=== PATIENT | male | born 1940 | race Caucasian/White ===

== ENCOUNTER 2019-10-02 14:42 | Inpatient (IN) | payer OTHER ==
[2019-10-02] MEDS ORDERED: LACTATED RINGERS SOLUTION 1000 ML INFUS.BAG IV ONE ×2 (15:05→15:43)
--- NOTE | 2019-10-02 15:48 | PDOC ---
Attending Attestation - Resident Resident Name: Toi Cody - ED Attending Attestation I have performed the following: I have examined & evaluated the patient, The case was reviewed & discussed with the resident, I agree w/resident's findings & plan - HPI HPI: 10/02/19 15:44 79-year-old male with history of diabetes, hypothyroidism, hypertension, hyperlipidemia Presenting with near syncopal episode. He was using the bathroom making a bowel movement when he stood up and felt very weak and slumped himself to the ground. No LOC or head trauma. No chest pain or shortness of breath. No abdominal pain, nausea vomiting or diarrhea. No focal weakness or paresthesias Patient has had a similar episode about 1-1/2 months ago while in [place] where he was admitted for dehydration and near syncope as well with a very similar presentation. He has also been COVID tested several times and negative most recently about 1.5 weeks ago. via EMS received 1L NS 10/02/19 16:36 - Physicial Exam PE: 10/02/19 15:44 Agree with the resident's HPI and PE as documented in the electronic medical record. malaised appearing, quiet, awake and alert, EOMI, PERRL, nl conjunctiva, anicteric; neck supple. lungs diminished bilaterally, tachycardic, abdomen soft nontender. no rebound, guarding. YOON x4, no focal neuro deficits. speech clear. No peripheral edema. normal color for ethnicity, WWP. no rash. no calf tenderness. - Medical Decision Making 10/02/19 15:46 Vital Signs Temp Pulse Resp BP Pulse Ox 92 H 26 H 51/40 L 88 L 10/02/19 14:45 10/02/19 14:45 10/02/19 14:45 10/02/19 14:45 Vital signs reviewed, afebrile. He is borderline tachycardic. Tachypneic and hypoxic 88% on room air, placed on supplemental oxygen He is hypotensive consistently. We will try manual blood pressure cuff. DDx syncope: considered interval abnormalities including short QTC or long QT syndrome, WPW, conduction abnormality, Brugada, ACS, myocardial infarction/ischemia, arrhythmia, valvular heart disease such as , CHF/cardiomyopathy, PE, electrolyte disturbances, metabolic derangement, clinically significant bleeding, dehydration, AAA. seizure, [employer] lesion, CVA, ICH, SAH. vasovagal episode. Neuro exam is nonfocal, not consistent with CVA or primary neurologic abnormality. will still need head ct could be infection or cardiovascular. covid 19 risk, last travel to [place] about 1 month ago. lives here had near syncope episode today similar to prior bedside pocus difficult, normal EF grossly, no effusion, flat IVC/collapsible fluid resuscitate with 2L LR and reassess mentating for now, goal map >65 will recheck at bedside declines central line for the time being 10/02/19 16:31 labs with lactic acidosis, sig leukocytosis 18.8K blood cultures pending no fever here pending dimer, if pos, CTA indicated covid 19 swab plan to admit observation for dehydration, lactic acidosis, near syncope workup, telemetry, echo, medical management 10/05/19 13:37 Heart Score/ECG Review #1 ECG reviewed & interpreted by me at: 14:55 General ECG Interpretation: Sinus Rhythm, Normal Intervals 10/02/19 15:47 EKG sinus tachycardia at 117 bpm, no interval abnormalities, narrow QRS, ST and T wave segments and morphology normal. Nonspecific T wave abnormalities Discharge - Discharge Information Problems reviewed: Yes Clinical Impression/Diagnosis: Near syncope, Hypovolemia, Lactic acidosis Condition: Guarded - Admission Yes - Follow up/Referral - Patient Discharge Instructions - Post Discharge Activity Vital Signs - Vital Signs Vital signs refused: No Pulse Rate: 87 Blood Pressure: 71/49 BP Location: Right Arm Blood Pressure position: Supine
--- NOTE | 2019-10-02 15:49 | PDOC ---
History of Present Illness - General Chief Complaint: Syncope/Near Syncope Stated Complaint: LOW BLOOD PRESSURE Time Seen by Provider: 10/02/19 14:52 History Source: Patient, Spouse Exam Limitations: No Limitations - History of Present Illness Initial Comments: 10/02/19 15:37 Jey Negron is a 79M with PMH HTN, HLD, NIDDM, hypothyroidism, presents with hypotension and pre-syncopal event. Patient here with at bedside to provide ancillary history. Patient having a bowel movement, felt weak, and was able to guide himself as he slumped to the ground. Patient is awake and denies any LOC or head trauma. Patient denies any prodromal SOB, chest pain, palpitations, fever, chills, N/V, urinary sx, vision changes, HARRIS, or abd pain. EMS reports BP 50/40 on arrival, 1L IV NS given, BP has been low entire time but patient was awake and speaking. Clothes covered in loose stool on presentation. Currently says he feels weak but okay, denies any other symptoms. Denies num bness/tingling or paraesthesias. 2 months ago had similar presentation while in [place], given 2L IV fluids and recovered, monitored overnight and discharged home. Unclear etiology at that time. COVID-19 tested about a week ago and was negative denies any symptoms of covid-19 at this time. Denies history of clotting disorders or clots. Allergy to seafood. Denies alcohol/drugs/tobacco. No PSH. Past History - Medical History Allergies/Adverse Reactions: Allergies Allergy/AdvReac Type Severity Reaction Status Date / Time No Known Allergies Allergy Verified 10/02/19 15:04 Home Medications: Ambulatory Orders Alfuzosin HCl [Alfuzosin HCl ER] 10 mg PO DAILY 10/02/19 Aspirin 81 mg PO DAILY 10/02/19 Atorvastatin Ca [Lipitor] 20 mg PO HS 10/02/19 Canagliflozin [Invokana] 100 mg PO DAILY 10/02/19 Efinaconazole [Jublia] 0 ml TP ASDIR 10/02/19 Gabapentin [Neurontin -] 100 mg PO HS 10/02/19 Insulin Glargine,Hum.rec.anlog [Lantus Solostar] 40 unit SQ HS 10/02/19 Levothyroxine [Synthroid -] 50 mcg PO DAILY 10/02/19 Lisinopril [Prinivil] 5 mg PO DAILY 10/02/19 Sitagliptin Phosphate [Januvia] 100 mg PO DAILY 10/02/19 metFORMIN HCL [Metformin HCl] 1,000 mg PO BID 10/02/19 COPD: No Diabetes: Yes - Psycho-Social/Smoking History Smoking History: Never smoked - Substance Abuse Hx (Audit-C & DAST Scrn) How often the patient has a drink containing alcohol: Never Score: In Men: 4 or > Positive; In Women: 3 or > Positive: 0 Screen Result (Pos requires Nsg. Audit-10AR): Negative In the last yr the pt used illegal drug/Rx for NonMed reason: No Score: Yes response is considered Positive: 0 Screen Result (Positive result requires Nsg. DAST-10): Negative Review of Systems - Review of Systems Able to Perform ROS?: Yes Constitutional: No: Chills, Diaphoresis, Fever HEENTM: No: Symptoms Reported Respiratory: No: Cough, Shortness of Breath, SOB with Exertion, SOB at Rest Cardiac (ROS): Yes: Lightheadedness. No: Chest Pain, Irregular Heart Rate, Palpitations ABD/GI: No: Constipated, Diarrhea, Nausea, Poor Appetite, Poor Fluid Intake, Vomiting : No: Symptoms Reported Musculoskeletal: No: Symptoms Reported Integumentary: No: Symptoms Reported Neurological: Yes: Weakness. No: Headache, Numbness Endocrine: No: Symptoms Reported Hematologic/Lymphatic: No: Symptoms Reported All Other Systems: Reviewed and Negative *Physical Exam - Vital Signs Last Vital Signs Temp Pulse Resp BP Pulse Ox 98.6 F 88 17 130/77 100 10/02/19 20:33 10/02/19 20:33 10/02/19 20:33 10/02/19 20:33 10/02/19 20:33 - Physical Exam General Appearance: Yes: Nourished, Appropriately Dressed, Other (lying flat in bed and drowsy, but verbal and responsive). No: Apparent Distress HEENT: positive: EOMI, RANJITH, Normal Voice, Symmetrical, Hearing Grossly Normal. negative: Scleral Icterus (R), Scleral Icterus (L), Muffled/Hoarse voice, Pharyngeal Erythema, Tonsillar Exudate, Tonsillar Erythema Neck: positive: Trachea midline, Normal Thyroid, Supple. negative: Tender, Rigid, Lymphadenopathy (R), Lymphadenopathy (L), Tender lateral, Tender midline Respiratory/Chest: positive: Lungs Clear, Normal Breath Sounds. negative: Chest Tender, Respiratory Distress, Accessory Muscle Use, Crackles, Rales, Rhonchi, Stridor, Wheezing Cardiovascular: positive: Regular Rhythm, Regular Rate. negative: Murmur Gastrointestinal/Abdominal: positive: Normal Bowel Sounds, Flat, Soft. negative: Tender, Organomegaly, Pulsatile Mass, Guarding, Rebound Musculoskeletal: positive: Normal Inspection. negative: CVA Tenderness, Decreased Range of Motion, Vertebral Tenderness Extremity: positive: Normal Capillary Refill, Normal Inspection, Normal Range of Motion, Pelvis Stable. negative: Tender, Delayed Capillary Refill, Pedal Edema, Swelling, Calf Tenderness Integumentary: positive: Normal Color, Dry, Warm Neurologic: positive: herb doctor II-XII NML intact, Fully Oriented, Alert, Normal Mood/Affect, Normal Response, Motor Strength 5/5. negative: Facial Droop, Numbness, Sensory Deficit ED Treatment Course - LABORATORY CBC & Chemistry Diagram: 10/02/19 15:20 10/02/19 15:20 - ADDITIONAL ORDERS Additional order review: Laboratory Results 10/02/19 10/02/19 10/02/19 16:00 15:20 15:20 PT with INR INR PTT (Actin FS) D-Dimer VBG pH 7.273 L POC VBG pCO2 41.4 POC VBG pO2 38.3 VBG HCO3 18.7 L VBG O2 Sat (Denise) 65.5 L VBG Base Excess -7.7 L Sodium Potassium Chloride Carbon Dioxide Anion Gap BUN Creatinine Est GFR (CKD-EPI)AfAm Est GFR (CKD-EPI)NonAf Random Glucose Lactic Acid 8.2 H* Calcium Magnesium Ferritin Total Bilirubin AST ALT Alkaline Phosphatase LD Total Creatine Kinase Troponin I C-Reactive Protein Total Protein Albumin Blood Type Cancelled Antibody Screen Cancelled 10/02/19 10/02/19 10/02/19 15:20 15:20 15:20 PT with INR 11.80 INR 1.00 PTT (Actin FS) 27.8 D-Dimer 40482 H VBG pH POC VBG pCO2 POC VBG pO2 VBG HCO3 VBG O2 Sat (Denise) VBG Base Excess Sodium 141 Potassium 4.4 Chloride 108 H Carbon Dioxide 18 L Anion Gap 15 BUN 19.4 H Creatinine 1.4 H Est GFR (CKD-EPI)AfAm 55.38 Est GFR (CKD-EPI)NonAf 47.78 Random Glucose 228 H Lactic Acid Calcium 9.7 Magnesium 2.2 Ferritin 20.8 Total Bilirubin 0.5 AST 44 H ALT 31 Alkaline Phosphatase 91 LD Total 391 H Creatine Kinase 115 Troponin I < 0.02 C-Reactive Protein < 0.3 Total Protein 6.6 Albumin 2.8 L Blood Type Antibody Screen 10/02/19 15:20 RBC 5.52 MCV 91.0 MCHC 31.5 L RDW 15.1 MPV 9.7 Neutrophils % 79.7 Lymphocytes % 13.1 Monocytes % 5.4 Eosinophils % 1.1 Basophils % 0.7 - RADIOLOGY Radiology Studies Ordered: Category Date Time Status CHEST CTA [CT] Stat CT Scan 10/02/19 17:22 Taken - Medications Given in the ED: ED Medications Discontinued Medications Generic Name Dose Route Start Last Admin Trade Name Freq PRN Reason Stop Dose Admin Lactated Ringer's 1,000 ml 10/02/19 15:05 10/02/19 15:59 Lactated Ringers Solution IV 10/02/19 15:06 1,000 ml ONCE ONE Administration Lactated Ringer's 1,000 ml 10/02/19 15:43 10/02/19 16:02 Lactated Ringers Solution IV 10/02/19 15:44 1,000 ml ONCE ONE Administration Medical Decision Making - Medical Decision Making 10/02/19 18:22 Patient presents with pre-syncopal episode and hypotension in the setting of previous episode and history of HTN, HLD. Patient's BP on arrival 50/40 with SpO2 80%, improved to 100% immediately on 14L NRB. BP highly responsive to IVF, was getting infusion of 1L NS via 22G in left foot by EMS, 20G IV placed and BP cher slowly over the next 15 minutes. Bedside ECHO unremarkable for cardiac pathology, but IVC highly collapsible consistent with volume depletion, no evidence of of R heart strain. Ddx includes volume depletion, infection, cardiogenic shock, anemia, covid-19 infection. Evaluating for hypotension and pre-syncope with CMP/CBC/Mag/CP /ECG/CXR/UA/UC/Coags/lactate/VBG/BC. Getting D-dimer/CRP/LDH for likely COVID-19 given endemic region and hypoxia. CT head and chest for evaluation of neuro cause for syncope as well as covid-19 risk stratification. ECG sinus tachycardia with frequent PVCs, HR 117, QTc 507, no SILVINO/D or TWI. 10/02/19 20:54 After 1L NS and 1.5L LR, patient's BP 120/70, markedly improved. Was considering central line placement for hypotension, but IVF corrected/ May consider ICU consult given presentation, but patient hemodynamically stable at this time. Labs notable for: - WBC 18.8, afebrile - D-dimer 13058, unclear if covid-19 vs. PE - lactic acid 8.3, hypotensive for prolonged period and getting IVF - LDH 391 - Cr 1.4, mild ARIN Given hypotension and D-dimer elevation and hypoxia without obvious history of clots, patient ordered for CTA chest for evaluation of PE. CT head unremarkable for emergent pathology. CT chest and CXR show bibasilar consolidation vs. atelectasis without ground glass changes. Signed out to night team Dr. Caleb Stanford, plan for CTA, repeat lactic acid, and admit for tele/obs for hypotension and pre-syncope. Discharge - Discharge Information Problems reviewed: Yes Clinical Impression/Diagnosis: Near syncope, Hypovolemia, Lactic acidosis Condition: Fair - Admission Yes - Follow up/Referral Referrals: Asha Bhandari MD [Primary Care Provider] - - Patient Discharge Instructions - Post Discharge Activity
[2019-10-02 15:52] LABS: BASO % 0.7 % (0-2.0); EOS % 1.1 % (0-4.5); HEMATOCRIT 50.2 % (35.4-49); HEMOGLOBIN 15.8 GM/dL (11.7-16.9); LYMPH % 13.1 % (8-40); MCH 28.7 pg (25.7-33.7); MCHC 31.5 g/dl (32.0-35.9); MEAN PLT VOLUME 9.7 fl (7.5-11.1); MONO % 5.4 % (3.8-10.2); NEUT % 79.7 % (42.8-82.8); PLATELET COUNT 306 K/MM3 (134-434); RBC 5.52 M/mm3 (4.00-5.60); RDW 15.1 % (11.9-15.9); WHITE BLOOD COUNT 18.8 K/mm3 (4.0-10.0)
[2019-10-02 16:02] LABS: PROTHROMBIN TIME (PATIENT) 11.8 SEC (9.7-13.0)
[2019-10-02 16:04] LABS: ACTIVATED PTT 27.8 SECONDS (25.2-36.5)
[2019-10-02 16:37] LABS: ALBUMIN 2.8 g/dl (3.4-5.0); ALK PHOS 91 U/L (45-117); ANION GAP 15 MMOL/L (8-16); BILIRUBIN,TOTAL 0.5 mg/dL (0.2-1); BLOOD UREA NITROGEN 19.4 mg/dL (7-18); CALCIUM 9.7 mg/dL (8.5-10.1); CHLORIDE 108 mmol/L (98-107); CO2 18 mmol/L (21-32); CREATININE 1.4 mg/dL (0.55-1.3); GLUCOSE,RANDOM 228 mg/dL (74-106); MAGNESIUM 2.2 mg/dL (1.8-2.4); POTASSIUM 4.4 mmol/L (3.5-5.1); SGOT/AST 44 U/L (15-37); SGPT/ALT 31 U/L (13-61); SODIUM 141 mmol/L (136-145); TOT PROT 6.6 g/dl (6.4-8.2)
[2019-10-02 16:39] LABS: VENOUS BASE EXCESS -7.7 mmol/L (-2-2); VENOUS O2 SATURATION 65.5 % (70-80); VENOUS PCO2 41.4 mmHg (38-52); VENOUS PH 7.273 (7.310-7.410)
[2019-10-02 17:38] LABS: LDH 391 U/L (87-246)
--- NOTE | 2019-10-02 19:22 | PDOC ---
*Physical Exam - Vital Signs Last Vital Signs Temp Pulse Resp BP Pulse Ox 88 18 117/64 100 10/02/19 17:56 10/02/19 17:56 10/02/19 17:56 10/02/19 17:56 ED Treatment Course - LABORATORY CBC & Chemistry Diagram: 10/03/19 06:05 10/03/19 06:05 - ADDITIONAL ORDERS Additional order review: Laboratory Results 10/02/19 10/02/19 10/02/19 16:00 15:20 15:20 PT with INR INR PTT (Actin FS) D-Dimer VBG pH 7.273 L POC VBG pCO2 41.4 POC VBG pO2 38.3 VBG HCO3 18.7 L VBG O2 Sat (Denise) 65.5 L VBG Base Excess -7.7 L Sodium Potassium Chloride Carbon Dioxide Anion Gap BUN Creatinine Est GFR (CKD-EPI)AfAm Est GFR (CKD-EPI)NonAf Random Glucose Lactic Acid 8.2 H* Calcium Magnesium Ferritin Total Bilirubin AST ALT Alkaline Phosphatase LD Total Creatine Kinase Troponin I C-Reactive Protein Total Protein Albumin Blood Type Cancelled Antibody Screen Cancelled 10/02/19 10/02/19 10/02/19 15:20 15:20 15:20 PT with INR 11.80 INR 1.00 PTT (Actin FS) 27.8 D-Dimer 27475 H VBG pH POC VBG pCO2 POC VBG pO2 VBG HCO3 VBG O2 Sat (Denise) VBG Base Excess Sodium 141 Potassium 4.4 Chloride 108 H Carbon Dioxide 18 L Anion Gap 15 BUN 19.4 H Creatinine 1.4 H Est GFR (CKD-EPI)AfAm 55.38 Est GFR (CKD-EPI)NonAf 47.78 Random Glucose 228 H Lactic Acid Calcium 9.7 Magnesium 2.2 Ferritin 20.8 Total Bilirubin 0.5 AST 44 H ALT 31 Alkaline Phosphatase 91 LD Total 391 H Creatine Kinase 115 Troponin I < 0.02 C-Reactive Protein < 0.3 Total Protein 6.6 Albumin 2.8 L Blood Type Antibody Screen 10/02/19 15:20 RBC 5.52 MCV 91.0 MCHC 31.5 L RDW 15.1 MPV 9.7 Neutrophils % 79.7 Lymphocytes % 13.1 Monocytes % 5.4 Eosinophils % 1.1 Basophils % 0.7 - Medications Given in the ED: ED Medications Discontinued Medications Generic Name Dose Route Start Last Admin Trade Name Freq PRN Reason Stop Dose Admin Lactated Ringer's 1,000 ml 10/02/19 15:05 10/02/19 15:59 Lactated Ringers Solution IV 10/02/19 15:06 1,000 ml ONCE ONE Administration Lactated Ringer's 1,000 ml 10/02/19 15:43 10/02/19 16:02 Lactated Ringers Solution IV 10/02/19 15:44 1,000 ml ONCE ONE Administration Medical Decision Making - Medical Decision Making 10/02/19 19:20 79M presenting today with hypotension (50/40), diarrhea, and syncope while using the toilet Recently visited [place]. D-dimer elevated. Will obtain CTA to r/o PE and admit for hypotension. Pt is normotensive at this time after 2L of fluids. 10/02/19 22:02 CTA shows no gross signs of PE per verbal report with Dr. Molina. Unable to view official report as cadd technician support is away on vacation. 10/02/19 23:03 D/w Dr. Jaswant Hughes who accepts the patient for admission. 10/02/19 23:13 Rpt trop elevated Will obtain repeat EKG. Laboratory Last Values WBC 18.8 K/mm3 (4.0-10.0) H 10/02/19 15:20 RBC 5.52 M/mm3 (4.00-5.60) 10/02/19 15:20 Hgb 15.8 GM/dL (11.7-16.9) 10/02/19 15:20 Hct 50.2 % (35.4-49) H 10/02/19 15:20 MCV 91.0 fl (80-96) 10/02/19 15:20 MCH 28.7 pg (25.7-33.7) 10/02/19 15:20 MCHC 31.5 g/dl (32.0-35.9) L 10/02/19 15:20 RDW 15.1 % (11.9-15.9) 10/02/19 15:20 Plt Count 306 K/MM3 (134-434) 10/02/19 15:20 MPV 9.7 fl (7.5-11.1) 10/02/19 15:20 Absolute Neuts (auto) 15.0 K/mm3 (1.5-8.0) H 10/02/19 15:20 Neutrophils % 79.7 % (42.8-82.8) 10/02/19 15:20 Lymphocytes % 13.1 % (8-40) 10/02/19 15:20 Monocytes % 5.4 % (3.8-10.2) 10/02/19 15:20 Eosinophils % 1.1 % (0-4.5) 10/02/19 15:20 Basophils % 0.7 % (0-2.0) 10/02/19 15:20 Nucleated RBC % 0 % (0-0) 10/02/19 15:20 PT with INR 11.80 SEC (9.7-13.0) 10/02/19 15:20 INR 1.00 (0.83-1.09) 10/02/19 15:20 PTT (Actin FS) 27.8 SECONDS (25.2-36.5) 10/02/19 15:20 D-Dimer 27235 ng/ml (0-500) H 10/02/19 15:20 VBG pH 7.273 (7.310-7.410) L 10/02/19 16:00 POC VBG pCO2 41.4 mmHg (38-52) 10/02/19 16:00 POC VBG pO2 38.3 mmHg (28-48) 10/02/19 16:00 VBG HCO3 18.7 mmol/L (23-29) L 10/02/19 16:00 VBG O2 Sat (Denise) 65.5 % (70-80) L 10/02/19 16:00 VBG Base Excess -7.7 mmol/L (-2-2) L 10/02/19 16:00 Sodium 141 mmol/L (136-145) 10/02/19 15:20 Potassium 4.4 mmol/L (3.5-5.1) 10/02/19 15:20 Chloride 108 mmol/L (98-107) H 10/02/19 15:20 Carbon Dioxide 18 mmol/L (21-32) L 10/02/19 15:20 Anion Gap 15 MMOL/L (8-16) 10/02/19 15:20 BUN 19.4 mg/dL (7-18) H 10/02/19 15:20 Creatinine 1.4 mg/dL (0.55-1.3) H 10/02/19 15:20 Est GFR (CKD-EPI)AfAm 55.38 10/02/19 15:20 Est GFR (CKD-EPI)NonAf 47.78 10/02/19 15:20 Random Glucose 228 mg/dL (74-106) H 10/02/19 15:20 Lactic Acid 8.2 mmol/L (0.4-2.0) H* 10/02/19 15:20 Calcium 9.7 mg/dL (8.5-10.1) 10/02/19 15:20 Magnesium 2.2 mg/dL (1.8-2.4) 10/02/19 15:20 Ferritin 20.8 ng/ml (8-388) 10/02/19 15:20 Total Bilirubin 0.5 mg/dL (0.2-1) 10/02/19 15:20 AST 44 U/L (15-37) H 10/02/19 15:20 ALT 31 U/L (13-61) 10/02/19 15:20 Alkaline Phosphatase 91 U/L (45-117) 10/02/19 15:20 LD Total 391 U/L (87-246) H 10/02/19 15:20 Creatine Kinase 115 U/L (26-308) 10/02/19 15:20 Troponin I < 0.02 ng/ml (0.00-0.05) 10/02/19 15:20 C-Reactive Protein < 0.3 MG/DL (0.00-0.3) 10/02/19 15:20 Total Protein 6.6 g/dl (6.4-8.2) 10/02/19 15:20 Albumin 2.8 g/dl (3.4-5.0) L 10/02/19 15:20 Blood Type Cancelled 10/02/19 15:20 Antibody Screen Cancelled 10/02/19 15:20 10/02/19 23:34 EKG #2 shows 74 bpm, NSR, no axis deviation, SD 150, QTc 428, no ST elevation/depression. Discharge - Discharge Information Problems reviewed: Yes Clinical Impression/Diagnosis: Near syncope, Hypovolemia, Lactic acidosis Condition: Fair - Follow up/Referral - Patient Discharge Instructions - Post Discharge Activity
--- NOTE | 2019-10-02 23:18 | PN ---
Teaching Attending Note Name of Resident: Nerissa Nichols ATTENDING PHYSICIAN STATEMENT I saw and evaluated the patient. I reviewed the resident's note and discussed the case with the resident. I agree with the resident's findings and plan as documented. SUBJECTIVE: Patient is a 79 year old man with a PMH of HTN, HLD, Cataracts, Insulin-treated DM and Hypothyroidism who presents with hypotension and pre-syncopal event. Patient here with at bedside to provide ancillary history. Patient having a bowel movement, felt weak, and was able to guide himself as he slumped to the ground. Patient is awake and denies any LOC or head trauma. Patient denies any prodromal SOB, chest pain, palpitations, fever, chills, nausea, vomiting, dysuri a, urgency, frequency, vision changes, headache or abdominal pain.EMS reports BP 50/40 on arrival, 1L IV NS given, BP has been low entire time but patient was awake and speaking. Clothes covered in loose stool on presentation. Currently says he feels weak but okay, denies any other symptoms. Denies numbness, tingling or paraesthesias. Two months ago he had a similar presentation while in [place], given 2L IV fluids and recovered, monitored overnight and discharged home. Unclear etiology at that time. COVID-19 tested about a week ago and was negative. Denies history of clotting disorders or c lots, melena, hematochezia or hematuria. Denies alcohol, tobacco or illicit drug use. No sick contacts or recent travels. Has family history of DM in mother and father of pancreatic cancer. OBJECTIVE: Alert and orthostatic Vital Signs Period Temp Pulse Resp BP Sys/Alfred Pulse Ox Last 24 Hr 98.6 F 87-93 17-26 51-130/40-89 88-100 HEENT: No Jaundice, eye redness or discharge, PERRLA, EOMI. Normocephalic, atraumatic. External ears are normal and hearing is grossly intact. No nasal discharge. Neck: Supple, nontender. No palpable adenopathy or thyromegaly. No JVD Chest: Good effort. Clear to auscultation and percussion. Heart: Regular. No S3, rub or murmur Abdomen: Not distended, soft, nontender and no HSM. No rebound or guarding. Normal bowel sounds. Ext: Peripheral pulses intact. No leg edema. Skin: Warm and dry. No petechiae, rash or ecchymosis. Neuro: Alert. Oriented x3. CN 2-12 grossly intact. Sensation grossly intact in all four extremities and DTR are symmetric. Psych: Appropriate mood and affect. Good insight. Current Medications Generic Name Dose Route Start Last Admin Trade Name Adrianq PRN Reason Stop Dose Admin Enoxaparin Sodium 40 mg 10/03/19 10:00 Lovenox - SQ DAILY [facility] Home Medications Medication Instructions Recorded Alfuzosin HCl [Alfuzosin HCl ER] 10 mg PO DAILY 10/02/19 Aspirin 81 mg PO DAILY 10/02/19 Atorvastatin Ca [Lipitor] 20 mg PO HS 10/02/19 Canagliflozin [Invokana] 100 mg PO DAILY 10/02/19 Efinaconazole [Jublia] 0 ml TP ASDIR 10/02/19 Gabapentin [Neurontin -] 100 mg PO HS 10/02/19 Insulin Glargine,Hum.rec.anlog 40 unit SQ HS 10/02/19 [Lantus Solostar] Levothyroxine [Synthroid -] 50 mcg PO DAILY 10/02/19 Lisinopril [Prinivil] 5 mg PO DAILY 10/02/19 Sitagliptin Phosphate [Januvia] 100 mg PO DAILY 10/02/19 metFORMIN HCL [Metformin HCl] 1,000 mg PO BID 10/02/19 Abnormal Lab Results 10/02/19 10/02/19 10/02/19 15:20 15:20 15:20 WBC 18.8 H Hct 50.2 H MCHC 31.5 L Absolute Neuts (auto) 15.0 H D-Dimer 92899 H VBG pH VBG HCO3 VBG O2 Sat (Denise) VBG Base Excess Chloride 108 H Carbon Dioxide 18 L BUN 19.4 H Creatinine 1.4 H Random Glucose 228 H Lactic Acid AST 44 H LD Total 391 H Troponin I Albumin 2.8 L 10/02/19 10/02/19 10/02/19 15:20 16:00 21:00 WBC Hct MCHC Absolute Neuts (auto) D-Dimer VBG pH 7.273 L VBG HCO3 18.7 L VBG O2 Sat (Denise) 65.5 L VBG Base Excess -7.7 L Chloride Carbon Dioxide BUN Creatinine Random Glucose Lactic Acid 8.2 H* 2.5 H* AST LD Total Troponin I Albumin 10/02/19 22:20 WBC Hct MCHC Absolute Neuts (auto) D-Dimer VBG pH VBG HCO3 VBG O2 Sat (Denise) VBG Base Excess Chloride Carbon Dioxide BUN Creatinine Random Glucose Lactic Acid AST LD Total Troponin I 0.27 H Albumin Current Medications Generic Name Dose Route Start Last Admin Trade Name Freq PRN Reason Stop Dose Admin Apixaban 2.5 mg 10/03/19 10:00 Eliquis - PO BID RAMU Sodium Chloride 1,000 mls @ 83 mls/hr 10/03/19 00:15 10/03/19 00:38 Normal Saline - IV 83 mls/hr ASDIR RAMU Administration Insulin Aspart 1 vial 10/03/19 07:00 Novolog Vial Sliding Scale - SQ ACHS RAMU Protocol Piperacillin Sod/Tazobactam Sod 3.375 gm 10/03/19 00:45 10/03/19 00:57 Zosyn 3.375gm Ivpb (Pre-Docked) IVPB 10/03/19 18:01 3.375 gm Q8H-IV RAMU Administration Piperacillin Sod/Tazobactam Sod 3.375 gm 10/04/19 02:00 Zosyn 3.375gm Ivpb (Pre-Docked) IVPB Q8H-IV RAMU Vancomycin HCl 1,000 mg 10/04/19 00:45 Vancomycin (Pre-Docked) IVPB Q24H RAMU ASSESSMENT AND PLAN: 1. Presyncope/Septic shock due to pneumonia - BP improved with IV fluids in the ER. CXR shows cardiomegaly with bibasilar atelectasis (R>L). Noncontrast head CT scan shows moderate atrophy, left paraventricular chronic lacunar infarct but no evidence of acute intracranial pathology. Chest CT and CTA - No pulmonary embolism reported. Shows bibasilar atelectatsis/consolidation and JEAN pneumonia with acute/subacute fractures of left ribs 4,5 and 6. Was recently hospitalized in [place]. Sepsis workup done. Will treat with IV Zosyn and Vancomycin - dose adjusted for GFR. Will treat with Eliquis 2.5 mg PO bid until VTE can be definitely excluded. If he has naymore loose stool, will send for stool studies including C. diff toxin. EKG shows NSR at 78/minute and QTc [address]-T wave changes. Initial troponin is 0.27. Will admit to telemetry, trend troponin, rule ou ACS, trend lactic acid, continue IV NS, get ECHO, COVID-19 antibody test, TSH, do speech and swallow evaluation, neurochecks and implement fall/aspiration/seizure precautions. Consult Cardiology/PT/ID/Pulmonary. Viral testing for COVID-19 ordered and patient placed on airborne, droplet and contact isolation. Started on supplemental oxygen via nasal cannula. Will continue comprehensive care for all of patients comorbid conditions. 2. Hypoalbuminemia - Possibly due to combined effects of malnutrition and inflammation associated with comorbid conditions. Will ensure adequate dietary protein intake and also consult time piece repairer. Urinalysis pending. 3. Uncontrolled DM For now, we will hold the home diabetes drugs and implement sliding scale insulin regimen. Provide comprehensive diabetes care with patient teaching and counseling about the importance of adherence to prescribed diabetes regimen, euglycemia, eye care and foot care. 4. ARIN Likely partly due to dehydration/hypotension. Will get kidney sonogram, hydrate gently, monitor urine output and consult Nephrology. Avoid nephrotoxic agents such as NSAIDS, aminoglycosides, contrast dyes and certain Alternative medicine products. 5. Hypertension Will hold all outpatient antihypertensive drugs for now. 6. DVT prophylaxis - Eliquis 2.5 mg bid 7. Advance directives - Full code
[2019-10-02] MEDS ORDERED: AZITHROMYCIN IVPB 500 MG/250 ML BAG IVPB ONE (23:45)
[2019-10-02] MEDS ORDERED: CEFTRIAXONE 1 GM in DEXTROSE 5%-WATER - 50 ML IVPB SCH ×2 (23:45→23:47)
[2019-10-02] MEDS ORDERED: AZITHROMYCIN IVPB 500 MG in DEXTROSE 5%-WATER - 250 ML IVPB ONE (23:47)
[2019-10-02 23:49] LABS: ARTERIAL BLD GAS O2 SATURATION 99.7 mmHg (95-98); ARTERIAL BLOOD GAS BASE EXCESS -3.3 mmol/L (-2-2); ARTERIAL BLOOD GAS pH 7.368 (7.350-7.450)
[2019-10-02 23:50] LABS: ALLENS TEST POSITIVE
[2019-10-02 23:54] LABS: URINE APPEARANCE CLEAR; URINE BILIRUBIN NEGATIVE (NEGATIVE); URINE COLOR YELLOW; URINE GLUCOSE (UA) 3+ (NEGATIVE); URINE KETONE NEGATIVE (NEGATIVE); URINE LEUK ESTERASE NEGATIVE (NEGATIVE); URINE NITRITE NEGATIVE (NEGATIVE); URINE PROTEIN TRACE (NEGATIVE); URINE UROBILINOGEN 0.2 mg/dL (0.2-1.0)
[2019-10-03] MEDS ORDERED: LACTATED RINGERS SOLUTION 1,000 ML/1,000 ML INFUS.BAG IV SCH (00:15)
[2019-10-03] MEDS ORDERED: CEFTRIAXONE 1 GM/50 ML BAG ONE (00:16)
[2019-10-03] MEDS: SODIUM CHLORIDE 1,000 ML IV SCH (00:38)
[2019-10-03] MEDS ORDERED: PIPERACILLIN/TAZOB 3.375 GM 3.375 GM/50 ML BAG IVPB ONE (00:43)
[2019-10-03] MEDS ORDERED: VANCOMYCIN 1 GM in D5W (PRE-DOCKED) 1,000 MG/250 ML IVPB SCH (00:45)
[2019-10-03] MEDS: PIPERACILLIN/TAZOB 3.375 GM/50 ML PRE-DOCKED IVPB SCH ×2 (00:57→10:00)
[2019-10-03] MEDS ORDERED: VANCOMYCIN 1 GRAM (PRE-DOCKED) 1,000 MG/250 ML BAG IVPB ONE (01:28)
[2019-10-03] MEDS ORDERED: APIXABAN 2.5 MG TABLET PO SCH ×4 (04:51→10:00)
[2019-10-03] MEDS ORDERED: ATORVASTATIN CA 20 MG TABLET (FP) PO SCH ×2 (04:55→22:00)
[2019-10-03] MEDS: ASPIRIN 81 MG CHEWABLE TABLETS PO SCH ×2 (05:22→10:35)
--- NOTE | 2019-10-03 05:40 | HP ---
PCP: None HISTORY OF PRESENT ILLNESS: Patient is a 79 year old man with a PMH of HTN, HLD and cataracts now presenting to the ED with hypotension and pre-syncopal event. Patient was heading to the bathroom when he sudden started feeling feeling weak. On getting to the bathroom, he fell of the toilet bowl and his daughter who was close by decided to called 911. Priot to this, patient had just finished having a discussion at his office when and was standing for about 10-15mins. Two months ago he had a similar presentation while in [place], given 2L IV fluids and recovered, monitored overnight and discharged home. Patient He also has non bloody diarrhea of about 3 cups/episodes and has had more than 2 episodes. He felt weak after these events and was able to guide himself as he slumped to the ground. He denies any LOC or head trauma. Patient denies any prodromal SOB, chest pain, palpitations, fever, chills, nausea, vomiting, dysuria, urgency, frequency, vision changes, headache or abdominal pain.EMS reports BP 50/40 on arrival, 1L IV NS given, BP has been low entire time but patient was awake and speaking. Clothes covered in loose stool on presentation. Patient says he feels ok. Denies any other symptoms. Denies numbness, tingling or paraesthesias. Unclear etiology at that time. COVID-19 tested about a week ago and was negative. Denies history of clotting disorders or clots, melena, hematochezia or hematuria. . Has family history of DM in mother and father of pancreatic cancer. ER course was notable for: (1)IVF: N/S 1L (2)CT CHEST, CHEST/HEAD CTA, CXR (3)UA, CBC, serum Albumin (4) D-Dimer (5) Lactate Recent Travel: TO [place] 3 weeks ago PAST SURGICAL HISTORY: Social History: Smoking:None Alcohol:None Drugs:None Allergies Shrimps with anaphylaxis. Last episode ended him in the ER Home Medications Medication Instructions Recorded Alfuzosin HCl [Alfuzosin HCl ER] 10 mg PO DAILY 10/02/19 Atorvastatin Ca [Lipitor] 20 mg PO HS 10/02/19 Canagliflozin [Invokana] 100 mg PO DAILY 10/02/19 Efinaconazole [Jublia] 0 ml TP ASDIR 10/02/19 Gabapentin [Neurontin -] 100 mg PO HS 10/02/19 Insulin Glargine,Hum.rec.anlog 40 unit SQ HS 10/02/19 [Lantus Solostar] Levothyroxine [Synthroid -] 50 mcg PO DAILY 10/02/19 Lisinopril [Prinivil] 5 mg PO DAILY 10/02/19 Sitagliptin Phosphate [Januvia] 100 mg PO DAILY 10/02/19 metFORMIN HCL [Metformin HCl] 1,000 mg PO BID 10/02/19 REVIEW OF SYSTEMS Negative except in body of history Vital Signs - 24 hr 10/02/19 10/02/19 10/02/19 14:45 16:36 16:47 Temperature Pulse Rate 92 H 87 Pulse Rate [ 87 Apical] Respiratory 26 H 20 Rate Blood Pressure 51/40 L 71/49 L Blood Pressure 104/56 L [Right Arm] O2 Sat by Pulse 88 L 100 Oximetry (%) 10/02/19 10/02/19 10/02/19 17:56 20:33 22:31 Temperature 98.6 F Pulse Rate Pulse Rate [ 88 88 93 H Apical] Respiratory 18 17 18 Rate Blood Pressure Blood Pressure 117/64 130/77 110/89 [Right Arm] O2 Sat by Pulse 100 100 100 Oximetry (%) 10/03/19 10/03/19 01:00 03:00 Temperature Pulse Rate Pulse Rate [ 87 80 Apical] Respiratory 17 17 Rate Blood Pressure Blood Pressure 122/71 125/67 [Right Arm] O2 Sat by Pulse 100 100 Oximetry (%) GENERAL: Awake, alert, and fully oriented but anxious about his health HEAD: Normal with no signs of trauma, non tender EYES: Anicteric sclera, conjunctiva clear. No lid lag or pallor EARS, NOSE, THROAT: No rash, tenderness or discharge NECK: Normal range of motion, supple without lymphadenopathy, JVD, or masses. LUNGS: Vesicular Breath sounds heard b/lequal, clear to auscultation bilaterally. No wheezes, and no crackles. No obvious signs of respiratory distress . HEART: Regular rate and rhythm, normal S1 and S2 without murmur, rub or gallop. ABDOMEN: Full, soft, nontender, normoactive bowel sounds, no guarding, no rebound, no masses. No hepatomegaly or splenomegaly. MUSCULOSKELETAL: Normal range of motion at all joints. No CVA tenderness. UPPER EXTREMITIES: 2+ pulses, warm, well-perfused. No cyanosis. No clubbing. No peripheral edema. Motor 5/5 LOWER EXTREMITIES: 2+ pulses, warm, well-perfused. No calf tenderness. No peripheral edema. Motor 5/5 NEUROLOGICAL: Normal speech. Normal gait. PSYCHIATRIC: Cooperative. Good eye contact. Appropriate mood and affect. SKIN: Warm, dry, normal turgor, no rashes or lesions noted, normal capillary refill. Laboratory Results - last 24 hr 10/02/19 10/02/19 10/02/19 15:20 15:20 15:20 WBC 18.8 H RBC 5.52 Hgb 15.8 Hct 50.2 H MCV 91.0 MCH 28.7 MCHC 31.5 L RDW 15.1 Plt Count 306 MPV 9.7 Absolute Neuts (auto) 15.0 H Neutrophils % 79.7 Lymphocytes % 13.1 Monocytes % 5.4 Eosinophils % 1.1 Basophils % 0.7 Nucleated RBC % 0 PT with INR 11.80 INR 1.00 PTT (Actin FS) 27.8 D-Dimer 95733 H Anticoagulation Therapy Puncture Site Patient Temperature ABG pH ABG pCO2 ABG pO2 ABG HCO3 ABG O2 Sat (Measured) ABG O2 Content ABG Base Excess Gera Test VBG pH POC VBG pCO2 POC VBG pO2 VBG HCO3 VBG O2 Sat (Denise) VBG Base Excess Patient On Oxygen O2 Delivery Device Oxygen Flow Rate Vent Mode Vent Rate Mechanical Rate PEEP Pressure Support Vent Sodium Potassium Chloride Carbon Dioxide Anion Gap BUN Creatinine Est GFR (CKD-EPI)AfAm Est GFR (CKD-EPI)NonAf POC Glucometer Random Glucose Lactic Acid Calcium Magnesium Ferritin Total Bilirubin AST ALT Alkaline Phosphatase LD Total Creatine Kinase Troponin I C-Reactive Protein Total Protein Albumin Urine Color Urine Appearance Urine pH Ur Specific [place] Urine Protein Urine Glucose (UA) Urine Ketones Urine Blood Urine Nitrite Urine Bilirubin Urine Urobilinogen Ur Leukocyte Esterase Blood Type Antibody Screen 10/02/19 10/02/19 10/02/19 15:20 15: 15:20 WBC RBC Hgb Hct MCV MCH MCHC RDW Plt Count MPV Absolute Neuts (auto) Neutrophils % Lymphocytes % Monocytes % Eosinophils % Basophils % Nucleated RBC % PT with INR INR PTT (Actin FS) D-Dimer Anticoagulation Therapy Puncture Site Patient Temperature ABG pH ABG pCO2 ABG pO2 ABG HCO3 ABG O2 Sat (Measured) ABG O2 Content ABG Base Excess Gera Test VBG pH POC VBG pCO2 POC VBG pO2 VBG HCO3 VBG O2 Sat (Denise) VBG Base Excess Patient On Oxygen O2 Delivery Device Oxygen Flow Rate Vent Mode Vent Rate Mechanical Rate PEEP Pressure Support Vent Sodium 141 Potassium 4.4 Chloride 108 H Carbon Dioxide 18 L Anion Gap 15 BUN 19.4 H Creatinine 1.4 H Est GFR (CKD-EPI)AfAm 55.38 Est GFR (CKD-EPI)NonAf 47.78 POC Glucometer Random Glucose 228 H Lactic Acid 8.2 H* Calcium 9.7 Magnesium 2.2 Ferritin 20.8 Total Bilirubin 0.5 AST 44 H ALT 31 Alkaline Phosphatase 91 LD Total 391 H Creatine Kinase 115 Troponin I < 0.02 C-Reactive Protein < 0.3 Total Protein 6.6 Albumin 2.8 L Urine Color Urine Appearance Urine pH Ur Specific [place] Urine Protein Urine Glucose (UA) Urine Ketones Urine Blood Urine Nitrite Urine Bilirubin Urine Urobilinogen Ur Leukocyte Esterase Blood Type Cancelled Antibody Screen Cancelled 10/02/19 10/02/19 10/02/19 16:00 21:00 22:20 WBC RBC Hgb Hct MCV MCH MCHC RDW Plt Count MPV Absolute Neuts (auto) Neutrophils % Lymphocytes % Monocytes % Eosinophils % Basophils % Nucleated RBC % PT with INR INR PTT (Actin FS) D-Dimer Anticoagulation Therapy Puncture Site Patient Temperature ABG pH ABG pCO2 ABG pO2 ABG HCO3 ABG O2 Sat (Measured) ABG O2 Content ABG Base Excess Gera Test VBG pH 7.273 L POC VBG pCO2 41.4 POC VBG pO2 38.3 VBG HCO3 18.7 L VBG O2 Sat (Denise) 65.5 L VBG Base Excess -7.7 L Patient On Oxygen O2 Delivery Device Oxygen Flow Rate Vent Mode Vent Rate Mechanical Rate PEEP Pressure Support Vent Sodium Potassium Chloride Carbon Dioxide Anion Gap BUN Creatinine Est GFR (CKD-EPI)AfAm Est GFR (CKD-EPI)NonAf POC Glucometer Random Glucose Lactic Acid 2.5 H* Calcium Magnesium Ferritin Total Bilirubin AST ALT Alkaline Phosphatase LD Total Creatine Kinase Troponin I 0.27 H C-Reactive Protein Total Protein Albumin Urine Color Urine Appearance Urine pH Ur Specific [place] Urine Protein Urine Glucose (UA) Urine Ketones Urine Blood Urine Nitrite Urine Bilirubin Urine Urobilinogen Ur Leukocyte Esterase Blood Type Antibody Screen 10/02/19 10/02/19 10/02/19 23:39 23:41 23:45 WBC RBC Hgb Hct MCV MCH MCHC RDW Plt Count MPV Absolute Neuts (auto) Neutrophils % Lymphocytes % Monocytes % Eosinophils % Basophils % Nucleated RBC % PT with INR INR PTT (Actin FS) D-Dimer Anticoagulation Therapy No Result Required. Puncture Site Right radial Patient Temperature No Result Required. ABG pH 7.368 ABG pCO2 38.30 ABG pO2 312.0 H ABG HCO3 21.5 L ABG O2 Sat (Measured) 99.7 H ABG O2 Content No Result Required. ABG Base Excess -3.3 L Gera Test Positive VBG pH POC VBG pCO2 POC VBG pO2 VBG HCO3 VBG O2 Sat (Denise) VBG Base Excess Patient On Oxygen Yes O2 Delivery Device Nonrebreather Oxygen Flow Rate 100 Vent Mode No Result Required. Vent Rate No Result Required. Mechanical Rate No Result Required. PEEP No Result Required. Pressure Support Vent No Result Required. Sodium Potassium Chloride Carbon Dioxide Anion Gap BUN Creatinine Est GFR (CKD-EPI)AfAm Est GFR (CKD-EPI)NonAf POC Glucometer 150 Random Glucose Lactic Acid Calcium Magnesium Ferritin Total Bilirubin AST ALT Alkaline Phosphatase LD Total Creatine Kinase Troponin I C-Reactive Protein Total Protein Albumin Urine Color Yellow Urine Appearance Clear Urine pH 5.0 Ur Specific [place] 1.028 Urine Protein Trace Urine Glucose (UA) 3+ H Urine Ketones Negative Urine Blood Negative Urine Nitrite Negative Urine Bilirubin Negative Urine Urobilinogen 0.2 Ur Leukocyte Esterase Negative Blood Type Antibody Screen 10/03/19 10/03/19 03:41 03:41 WBC RBC Hgb Hct MCV MCH MCHC RDW Plt Count MPV Absolute Neuts (auto) Neutrophils % Lymphocytes % Monocytes % Eosinophils % Basophils % Nucleated RBC % PT with INR INR PTT (Actin FS) D-Dimer Anticoagulation Therapy Puncture Site Patient Temperature ABG pH ABG pCO2 ABG pO2 ABG HCO3 ABG O2 Sat (Measured) ABG O2 Content ABG Base Excess Gera Test VBG pH POC VBG pCO2 POC VBG pO2 VBG HCO3 VBG O2 Sat (Denise) VBG Base Excess Patient On Oxygen O2 Delivery Device Oxygen Flow Rate Vent Mode Vent Rate Mechanical Rate PEEP Pressure Support Vent Sodium Potassium Chloride Carbon Dioxide Anion Gap BUN Creatinine Est GFR (CKD-EPI)AfAm Est GFR (CKD-EPI)NonAf POC Glucometer Random Glucose Lactic Acid 2.0 Calcium Magnesium Ferritin Total Bilirubin AST ALT Alkaline Phosphatase LD Total Creatine Kinase Troponin I 0.37 H C-Reactive Protein Total Protein Albumin Urine Color Urine Appearance Urine pH Ur Specific [place] Urine Protein Urine Glucose (UA) Urine Ketones Urine Blood Urine Nitrite Urine Bilirubin Urine Urobilinogen Ur Leukocyte Esterase Blood Type Antibody Screen ASSESSMENT/PLAN: 1. Presyncope/Septic shock 2/2 bacterial pneumonia -BP improved with administration of IV fluids in the ER. -wbc> 18.8 with left shift -Lactic acid of 8.5 -Previous episode of syncope -CXR shows cardiomegaly with bibasilar atelectasis (R>L). -Noncontrast head CT scan shows moderate atrophy, left paraventricular chronic lacunar infarct. No evidence of acute intracranial pathology. Chest CT and -CTA - showed no evidence of pulmonary embolism seen but showed bibasilar atelectatsis/consolidation with suspicion for lobar pneumonia. -Recent trip to [place] in the past 3 weeks. -Admit telemetry: HR 78, Initial troponin+ negative, repeat=0.27 -Trend troponin -Trend lactate -COVID 19 antibody PCR -Pt to be placed on airborne, droplet and droplet precaution -IVF: N/S -IV Zosyn and Vancomycin for pseudomonas aerogina and mrsa respectively. -Zosyn and vanco to be adjusted for GFR. -Stool for C. Diff antigen -Fall, seizures and aspiration precautions to be implemented -TSH assay -Bedside speech and swallowing evaluation -Neuro checks -Cardio, Infectious, Pulmonary and PT to be consulted 2. Hypoalbuminemia -Serum albumin is 2.8. May be due to albumin escape into ECF in malnutrition and comorbid associated inflammation -To ensure protein intake and also consult purchasing intern. -Urinalysis result pending. 3. Uncontrolled DM -Hold the home diabetes drugs and implement sliding scale insulin regimen. -Wireline Field Operator patient about benefits of adherence to meds and efficient blood glucose controleuglycemia, eye care and foot care. 4. ARIN Likely 2/2 dehydration -Hypotension. -Kidney sonogram -N/S for gentle hydration -Monitor urine output and consult scale installer -Avoid nephrotoxic agents such as NSAIDS, aminoglycosides, contrast dyes and certain Alternative medicine products. 5. Hypertension -Known Hypertensive -Hold all outpatient antihypertensive drugs for now, to be continued at a later time for optimal BP control. 6. DVT prophylaxis - -D-dimer 36,466 - Eliquis 2.5 mg bid 7. Advance directives - Full code Visit type - Medication Review Med list reviewed for High Risk Meds patients 65 and older: No - Emergency Visit Emergency Visit: Yes ED Registration Date: 10/02/19 Care time: The patient presented to the Emergency Department on the above date and was hospitalized for further evaluation of their emergent condition. - New Patient This patient is new to me today: Yes Date on this admission: 10/02/19 - Critical Care Critical Care patient: No ATTENDING PHYSICIAN STATEMENT I saw and evaluated the patient. I reviewed the resident's note and discussed the case with the resident. I agree with the resident's findings and plan as documented. SUBJECTIVE: OBJECTIVE: ASSESSMENT AND PLAN:
[2019-10-03] MEDS ORDERED: HEPARIN NA (PORCINE) 5,000 UNITS/ML 1ML VIAL SQ SCH (06:00)
[2019-10-03 06:51] LABS: BASO % 0.5 % (0-2.0); EOS % 2.1 % (0-4.5); HEMATOCRIT 43.3 % (35.4-49); HEMOGLOBIN 13.8 GM/dL (11.7-16.9); MCH 28.8 pg (25.7-33.7); MCHC 31.9 g/dl (32.0-35.9); MEAN CELL VOLUME 90.1 fl (80-96); MEAN PLT VOLUME 8.7 fl (7.5-11.1); MONO % 6.4 % (3.8-10.2); PLATELET COUNT 259 K/MM3 (134-434); RBC 4.81 M/mm3 (4.00-5.60); RDW 15.1 % (11.9-15.9); WHITE BLOOD COUNT 11.7 K/mm3 (4.0-10.0)
[2019-10-03] MEDS: INSULIN SLIDING SCALE (NOVOLOG) 1 VIAL SQ SCH ×4 (07:09→21:57)
[2019-10-03] MEDS: LEVOTHYROXINE NA 50 MCG TABLET (FP) PO SCH (07:10)
[2019-10-03] MEDS ORDERED: APIXABAN 5 MG TABLET PO ONE (07:52)
[2019-10-03] MEDS ORDERED: TAMSULOSIN HCL 0.4 MG CAP PO SCH (08:30)
--- NOTE | 2019-10-03 09:04 | EKG ---
Test Reason : Blood Pressure : / mmHG Vent. Rate : 078 BPM Atrial Rate : 078 BPM P-R Int : 150 ms QRS Dur : 086 ms QT Int : 376 ms P-R-T Axes : 039 -12 036 degrees QTc Int : 428 ms NORMAL SINUS RHYTHM NORMAL ECG WHEN COMPARED WITH ECG OF 02-OCT-2019 14:55, ABERRANT CONDUCTION IS NO LONGER PRESENT VENT. RATE HAS DECREASED BY 39 BPM T WAVE AMPLITUDE HAS DECREASED IN ANTERIOR LEADS Confirmed by Bravo Bell ([id number]) on 10/03/2019 9:03:56 AM Referred By: Confirmed By:Bravo Bell
--- NOTE | 2019-10-03 09:04 | CON.CARD ---
Consult Consult Specialty:: cardiology - History of Present Illness History of Present Illness: 79M with PMH HTN, HLD, NIDDM, hypothyroidism, presents with hypotension and pre- syncopal event. Patient having a bowel movement, felt weak, but no syncope. Denies LOC. He was noted to have hypoxia and hypotensive with elevated Lactate and BP improved with IV hydration. CT chest shows bibasilar consolidation in lingular segment of the left upper lobe in addition to recent rib fractures of the left 4-5 and possibly 6th ribs. CTPA negative for PE. Noted to have elevated TP. ECG with NSR and no ST changes. - History Source History Provided By: Patient, Medical Record - Smoking History Smoking history: Never smoked Home Medications - Allergies Allergies/Adverse Reactions: Allergies Allergy/AdvReac Type Severity Reaction Status Date / Time No Known Allergies Allergy Verified 10/02/19 15:04 - Home Medications Home Medications: Ambulatory Orders Alfuzosin HCl [Alfuzosin HCl ER] 10 mg PO DAILY 10/02/19 Atorvastatin Ca [Lipitor] 20 mg PO HS 10/02/19 Canagliflozin [Invokana] 100 mg PO DAILY 10/02/19 Efinaconazole [Jublia] 0 ml TP ASDIR 10/02/19 Gabapentin [Neurontin -] 100 mg PO HS 10/02/19 Insulin Glargine,Hum.rec.anlog [Lantus Solostar] 40 unit SQ HS 10/02/19 Levothyroxine [Synthroid -] 50 mcg PO DAILY 10/02/19 Lisinopril [Prinivil] 5 mg PO DAILY 10/02/19 Sitagliptin Phosphate [Januvia] 100 mg PO DAILY 10/02/19 metFORMIN HCL [Metformin HCl] 1,000 mg PO BID 10/02/19 Review of Systems - Review of Systems Constitutional: reports: Lethargy. denies: Chills, Diaphoresis, Fever, Loss of Appetite, Malaise, Night Sweats, Unintentional Wgt. Loss Eyes: reports: No Symptoms HENT: denies: Difficult Swallowing, Nasal Congestion, Throat Pain Neck: reports: No Symptoms Cardiovascular: denies: Chest Pain, Edema, Palpitations, Shortness of Breath Respiratory: denies: Cough, SOB, SOB on Exertion Gastrointestinal: reports: Abdominal Pain, Diarrhea Vital Signs: Vital Signs Temperature 97.8 F 10/03/19 06:51 Pulse Rate 71 10/03/19 06:51 Respiratory Rate 20 10/03/19 06:51 Blood Pressure 110/68 10/03/19 06:51 O2 Sat by Pulse Oximetry (%) 100 10/03/19 06:51 Constitutional: Yes: Well Nourished, No Distress Eyes: Yes: Conjunctiva Clear HENT: Yes: Atraumatic, Normocephalic Neck: Yes: Supple, Trachea Midline Respiratory: Yes: Regular, CTA Bilaterally Gastrointestinal: Yes: Normal Bowel Sounds Cardiovascular: Yes: Regular Rate and Rhythm JVD: No Carotid Bruit: No PMI: Non-Displaced Heart Sounds: Yes: S1, S2 Murmur: No: Systolic Murmur, Diastolic Murmur Edema: No - Other Data Labs, Other Data: CBC, BMP 10/03/19 06:05 INR, PTT INR 1.00 (0.83-1.09) 10/02/19 15:20 Troponin, BNP 10/02/19 10/02/19 10/03/19 15:20 22:20 03:41 Troponin I < 0.02 0.27 H 0.37 H Troponin, BNP 10/02/19 10/02/19 10/03/19 15:20 22:20 03:41 Troponin I < 0.02 0.27 H 0.[address] T changes. Imaging - Results Cat Scan: Report Reviewed Problem List - Problems (1) Hypovolemia Code(s): E86.1 - HYPOVOLEMIA (2) Lactic acidosis Code(s): E87.2 - ACIDOSIS Assessment/Plan 79 M with loose BP dizziness, hypotension and lactic acidosis. CXR with possible JEAN pNA and mildly elevated TP Sepsis with possible PNA. Pt was stated on Abx. CTPA negative for PE. No congestive heart failure. COVID testing pending. Mild TP elevation without ECG changes and not consistent with ACS and related to demand mediated ischemia due to hypotension and sepsis. Monitor Bp closely and transfer to ICU if hypotensive. Continue fluid recessutation and pressors if needed Hold All BP meds and DM meds at this time. DVT prophylaxis.
--- NOTE | 2019-10-03 09:04 | EKG ---
Test Reason : Blood Pressure : / mmHG Vent. Rate : 117 BPM Atrial Rate : 117 BPM P-R Int : 134 ms QRS Dur : 084 ms QT Int : 364 ms P-R-T Axes : 043 023 052 degrees QTc Int : 507 ms SINUS TACHYCARDIA WITH PREMATURE ATRIAL COMPLEXES WITH ABERRANT CONDUCTION LOW VOLTAGE QRS NONSPECIFIC ST ABNORMALITY ABNORMAL ECG NO PREVIOUS ECGS AVAILABLE Confirmed by Bravo Bell ([id number]) on 10/03/2019 9:03:53 AM Referred By: Confirmed By:Bravo Bell
[2019-10-03 09:08] LABS: BILIRUBIN,TOTAL 0.5 mg/dL (0.2-1); BLOOD UREA NITROGEN 17.2 mg/dL (7-18); CALCIUM 8.9 mg/dL (8.5-10.1); CREATININE 1.1 mg/dL (0.55-1.3); MAGNESIUM 2.1 mg/dL (1.8-2.4); PHOSPHOROUS 4.8 mg/dL (2.5-4.9); POTASSIUM 4.6 mmol/L (3.5-5.1); TOT PROT 6.4 g/dl (6.4-8.2)
[2019-10-03] MEDS ORDERED: ASPIRIN 81 MG CHEWABLE TABLETS ONE (09:46)
[2019-10-03] MEDS ORDERED: APIXABAN 5 MG TABLET ONE (09:46)
[2019-10-03] MEDS ORDERED: LISINOPRIL 5 MG TABLET (FP) ONE (09:47)
[2019-10-03] MEDS ORDERED: TAMSULOSIN HCL 0.4 MG CAP ONE (09:47)
[2019-10-03] MEDS ORDERED: CEFTRIAXONE 1,000 MG in DEXTROSE 5%-WATER - 50 ML IVPB SCH (10:00)
[2019-10-03] MEDS ORDERED: LISINOPRIL 5 MG TABLET (FP) PO SCH (10:00)
[2019-10-03] MEDS ORDERED: AZITHROMYCIN IVPB 250 MG in DEXTROSE 5%-WATER - 250 ML IVPB SCH (10:00)
[2019-10-03] MEDS ORDERED: ENOXAPARIN NA (PORCINE) 40 MG/0.4 ML DISP.SYRIN SQ SCH (10:00)
[2019-10-03 10:18] LABS: ERYTHROCYTE SEDIMENTATION RATE 7 mm/hr (0-20)
--- NOTE | 2019-10-03 11:01 | CON.PULM ---
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 Admitted via the ER due to syncope and possible PNA. Patient reports going to the bathroom at home and then experienced sudden onset of weakness. He subsequently fell off the toilet bowl. He apparently had a similar episode of FL about 2 months ago, but the etiology was not determined. A few weeks ago he had a mechanical fall and hit his left rib cage. He went to [facility] and was told he had just "bruising". He has been splinting due to pain. No sick contacts. No fever or chills. He had a COVID19 test less than 3 weeks ago at [place] as he was going to visit his elderly sister and wanted to assure he was negative. CT: Bibasilar atelectasis and consolidations / there are no areas that appear like GGO / Negative for PE - History Source History Provided By: Patient Limitations to Obtaining History: No Limitations - Past Medical History Pulmonary: Yes: Bronchitis. No: Asthma, Cancer, COPD, O2 Dependent, Pneumonia, Previously Intubated, Pulmonary Embolus, Pulmonary Fibrosis, Sleep Apnea - Smoking History Smoking history: Never smoked Home Medications - Allergies Allergies/Adverse Reactions: Allergies Allergy/AdvReac Type Severity Reaction Status Date / Time No Known Allergies Allergy Verified 10/02/19 15:04 - Home Medications Home Medications: Ambulatory Orders Alfuzosin HCl [Alfuzosin HCl ER] 10 mg PO DAILY 10/02/19 Atorvastatin Ca [Lipitor] 20 mg PO HS 10/02/19 Canagliflozin [Invokana] 100 mg PO DAILY 10/02/19 Efinaconazole [Jublia] 0 ml TP ASDIR 10/02/19 Gabapentin [Neurontin -] 100 mg PO HS 10/02/19 Insulin Glargine,Hum.rec.anlog [Lantus Solostar] 40 unit SQ HS 10/02/19 Levothyroxine [Synthroid -] 50 mcg PO DAILY 10/02/19 Lisinopril [Prinivil] 5 mg PO DAILY 10/02/19 Sitagliptin Phosphate [Januvia] 100 mg PO DAILY 10/02/19 metFORMIN HCL [Metformin HCl] 1,000 mg PO BID 10/02/19 Review of Systems - Review of Systems Constitutional: reports: Malaise. denies: Chills, Fever, Night Sweats Eyes: reports: No Symptoms HENT: reports: No Symptoms Neck: reports: No Symptoms Cardiovascular: reports: Chest Pain. denies: Edema, Palpitations, Shortness of Breath Respiratory: reports: Cough. denies: Hemoptysis, Orthopnea, PND, Snoring, SOB, SOB on Exertion, Wheezing Gastrointestinal: reports: No Symptoms Genitourinary: reports: No Symptoms Breasts: reports: No Symptoms Reported Musculoskeletal: reports: Other (Left rib cage discomfort) Integumentary: reports: Bruising Neurological: reports: Change in LOC, Weakness Endocrine: reports: No Symptoms Hematology/Lymphatic: reports: No Symptoms Psychiatric: reports: No Symptoms Physical Exam Vital Sings: Vital Signs Temperature 97.8 F 10/03/19 06:51 Pulse Rate 77 10/03/19 10:00 Respiratory Rate 21 H 10/03/19 10:00 Blood Pressure 122/67 10/03/19 10:00 O2 Sat by Pulse Oximetry (%) 97 10/03/19 10:00 Constitutional: Yes: No Distress, Calm Eyes: Yes: Conjunctiva Clear, EOM Intact HENT: Yes: Atraumatic, Normocephalic Neck: Yes: Supple, Trachea Midline Cardiovascular: Yes: Regular Rate and Rhythm Respiratory: Yes: Cough, Diminished. No: Accessory Muscle Use, Rales, Rhonchi, SOB, SOB on Exertion, Stridor, Tachypnea, Wheezes ...Inspection: Yes: WNL ...Clubbing: No Gastrointestinal: Yes: WNL, Normal Bowel Sounds, Soft Renal/: Yes: WNL Musculoskeletal: Yes: WNL Extremities: Yes: WNL Edema: No Peripheral Pulses WNL: Yes Integumentary: Yes: WNL Neurological: Yes: WNL, Alert, Oriented ...Motor Strength: WNL Psychiatric: Yes: WNL, Alert, Oriented Labs: CBC, BMP 10/03/19 06:05 10/03/19 06:05 ABG Results ABG pH 7.368 (7.350-7.450) 10/02/19 23:45 ABG HCO3 21.5 mmol/L (22-27) L 10/02/19 23:45 ABG O2 Sat (Measured) 99.7 mmHg (95-98) H 10/02/19 23:45 ABG O2 Content No Result Required. 10/02/19 23:45 ABG Base Excess -3.3 mmol/L (-2-2) L 10/02/19 23:45 Imaging - Results Chest X-ray: Report Reviewed, Image Reviewed Cat Scan: Report Reviewed, Image Reviewed Problem List - Problems (1) Atelectasis of both lungs Code(s): J98.11 - ATELECTASIS (2) Lung consolidation Code(s): J18.1 - LOBAR PNEUMONIA, UNSPECIFIED ORGANISM (3) Pneumonia Code(s): J18.9 - PNEUMONIA, UNSPECIFIED ORGANISM (4) Hypovolemia Code(s): E86.1 - HYPOVOLEMIA (5) Near syncope Code(s): R55 - SYNCOPE AND COLLAPSE Assessment/Plan IMP: Bibasilar atelectasis due to splinting due to recent fall Suspected CAP PLAN: ABX noted and ID evaluation was called Supplemental O2 as needed Patient had a (-) COVID19 test less than 3 weeks ago at [place] Monitor off systemic steroids No smoking VTE prophylaxis Fall precautions Cardiac evaluation was called Incentive Spirometry Will follow Thank you. Dr Gonzalez
--- NOTE | 2019-10-03 12:01 | CON.ID ---
Consult Consult Specialty:: infectious diseases Referred by:: hospitalist Reason for Consultation:: pneumonia - History of Present Illness Chief Complaint: weakness History of Present Illness: 79M with PMH HTN, HLD, NIDDM, hypothyroidism, presents with hypotension and pre- syncopal event. Patient having a bowel movement, felt weak, but no syncope. Denies LOC. He was noted to have hypoxia and hypotensive with elevated Lactate and BP improved with IV hydration. CT chest shows bibasilar consolidation in lingular segment of the left upper lobe in addition to recent rib fractures of the left 4-5 and possibly 6th ribs. CTPA negative for PE. Noted to have elevated TP. ECG with NSR and no ST changes. patient also showing some infiltrate and also leukocytosis - History Source History Provided By: Patient Limitations to Obtaining History: No Limitations - Past Medical History Pulmonary: Yes: Bronchitis. No: Asthma, Cancer, COPD, O2 Dependent, Pneumonia, Previously Intubated, Pulmonary Embolus, Pulmonary Fibrosis, Sleep Apnea - Smoking History Smoking history: Never smoked Home Medications - Allergies Allergies/Adverse Reactions: Allergies Allergy/AdvReac Type Severity Reaction Status Date / Time No Known Allergies Allergy Verified 10/03/19 18:02 - Home Medications Home Medications: Ambulatory Orders Alfuzosin HCl [Alfuzosin HCl ER] 10 mg PO DAILY 10/02/19 Atorvastatin Ca [Lipitor] 20 mg PO HS 10/02/19 Canagliflozin [Invokana] 100 mg PO DAILY 10/02/19 Gabapentin [Neurontin -] 100 mg PO HS 10/02/19 Insulin Glargine,Hum.rec.anlog [Lantus Solostar] 40 unit SQ HS 10/02/19 Levothyroxine [Synthroid -] 50 mcg PO DAILY 10/02/19 Lisinopril [Prinivil] 5 mg PO DAILY 10/02/19 Sitagliptin Phosphate [Januvia] 100 mg PO DAILY 10/02/19 metFORMIN HCL [Metformin HCl] 1,000 mg PO BID 10/02/19 Review of Systems - Review of Systems Constitutional: reports: Weakness Eyes: reports: No Symptoms HENT: reports: No Symptoms Neck: reports: No Symptoms Cardiovascular: reports: Other Respiratory: reports: No Symptoms Gastrointestinal: reports: No Symptoms Genitourinary: reports: No Symptoms Musculoskeletal: reports: No Symptoms Integumentary: reports: No Symptoms Neurological: reports: No Symptoms, Dizziness Endocrine: reports: No Symptoms Hematology/Lymphatic: reports: No Symptoms Psychiatric: reports: No Symptoms Physical Exam Vital Signs: Vital Signs Temperature 97.8 F 10/03/19 06:51 Pulse Rate 77 10/03/19 10:00 Respiratory Rate 21 H 10/03/19 10:00 Blood Pressure 122/67 10/03/19 10:00 O2 Sat by Pulse Oximetry (%) 97 10/03/19 10:00 Constitutional: Yes: No Distress, Calm HENT: Yes: Atraumatic, Normocephalic Neck: Yes: Supple, Trachea Midline Cardiovascular: Yes: Regular Rate and Rhythm Respiratory: Yes: Regular, CTA Bilaterally Gastrointestinal: Yes: Normal Bowel Sounds, Soft Musculoskeletal: Yes: WNL Extremities: Yes: Other Neurological: Yes: Alert, Oriented Psychiatric: Yes: Alert, Oriented Labs: CBC, BMP 10/03/19 06:05 10/03/19 06:05 Imaging - Results Chest X-ray: Report Reviewed, Image Reviewed Cat Scan: Report Reviewed, Image Reviewed Assessment/Plan syncope\ pneumonia leukocytosis confusion plan will give abx monitor wbc if wbc normalizes will switch to oral rest as per the team
--- NOTE | 2019-10-03 12:20 | ECHO ---
Version: 1 Name: CLIFFORD ALEXANDRE Exam: Adult Echocardiogram Study Date: 10/03/2019, 11:07 AM Age: 79 Years MMode/2D Measurements & Calculations IVSd: 0.97 cm LVIDs: 3.5 cm LVIDd: 4.5 cm LVPWd: 0.88 cm ACS: 1.56 cm Ao root diam: 3.4 cm LVOT diam: 1.98 cm LA dimension: 2.6 cm Doppler Measurements & Calculations MV E max norm: 77.5 cm/sec Med E/e': 16.6 MV A max norm: 97.7 cm/sec Med Peak E' Norm: 4.7 cm/sec MV E/A: 0.79 Lat E/e': 8.8 Lat Peak E' Norm: 8.8 cm/sec LV V1 mean: 52.8 cm/sec LV V1 mean P.30 mmHg PI end-d norm: 69.2 cm/sec TR max norm: 218.5 cm/sec TR max P.1 mmHg Left Ventricle The left ventricular size, thickness and function are normal. Ejection Fraction = 65%. The transmitr al spectral Doppler flow pattern is suggestive of impaired LV relaxation. Right Ventricle The right ventricle is normal in size and function. Atria Normal left and right atrial size and function. Mitral Valve There is mild mitral annular calcification. There is trace mitral regurgitation. Tricuspid Valve The tricuspid valve is normal. There is mild tricuspid regurgitation. Aortic Valve There is mild to moderate aortic sclerosis.;. No aortic regurgitation is present. Pulmonic Valve The pulmonic valve is not well visualized. Great Vessels The aortic root is normal size. Normal aortic arch, descending and ascending aorta. Pericardium/Pleura There is no pericardial effusion. Tech Comments TDS due to body habitus. Poor acoustic windows. Summary Statements The left ventricular size, thickness and function are normal Ejection Fraction = 65%. The transmitral spectral Doppler flow pattern is suggestive of impaired LV relaxation. The right ventricle is normal in size and function. Normal left and right atrial size and function. There is mild mitral annular calcification. There is trace mitral regurgitation. The tricuspid valve is normal. There is mild tricuspid regurgitation. There is mild to moderate aortic sclerosis.; No aortic regurgitation is present. The pulmonic valve is not well visualized. The aortic root is normal size. Normal aortic arch, descending and ascending aorta There is no pericardial effusion. Jose Ramon [place] 10/03/2019, 12:19 PM Ordering Physician: Jaswant Lockhart Referring Physician: JASWANT LOCKHART Performed By: Radha Sykes
--- NOTE | 2019-10-03 12:25 | PN ---
Physical Exam: SUBJECTIVE: Patient seen and examined in the ED. In no acute distress. Reports feeling better. Denies chest pain, SOB, N/V/D. Reports having frequent episodes of light headedness if bending over and standing up too quickly. Reports he thinks his pants were too tight at the time of his episode yesterday. OBJECTIVE: Vital Signs Period Temp Pulse Resp BP Sys/Alfred Pulse Ox Last 24 Hr 97.8 F-98.6 F 71-93 17-26 51-130/40-89 88-100 GENERAL: The patient is awake, alert, and fully oriented, in no acute distress. HEAD: Normal with no signs of trauma. EYES: PERRL, extraocular movements intact, sclera anicteric, conjunctiva clear. ENT: moist mucous membranes. NECK: No JVD appreciated LUNGS: Breath sounds equal & CTA BL HEART: Regular rate and rhythm, S1, S2 ABDOMEN: overweight, soft, nontender, nondistended, normoactive bowel sounds, no guarding, no rebound, no hepatosplenomegaly, no masses. EXTREMITIES: 2+ pulses, warm, well-perfused, no edema. NEUROLOGICAL: Cranial nerves II through XII grossly intact. Normal speech PSYCH: Normal mood, normal affect. SKIN: Warm, dry, normal turgor, no rashes or lesions noted Laboratory Results - last 24 hr 10/02/19 10/02/19 10/02/19 15:20 15:20 15:20 WBC 18.8 H RBC 5.52 Hgb 15.8 Hct 50.2 H MCV 91.0 MCH 28.7 MCHC 31.5 L RDW 15.1 Plt Count 306 MPV 9.7 Absolute Neuts (auto) 15.0 H Neutrophils % 79.7 Lymphocytes % 13.1 Monocytes % 5.4 Eosinophils % 1.1 Basophils % 0.7 Nucleated RBC % 0 ESR PT with INR 11.80 INR 1.00 PTT (Actin FS) 27.8 D-Dimer 84513 H Anticoagulation Therapy Puncture Site Patient Temperature ABG pH ABG pCO2 ABG pO2 ABG HCO3 ABG O2 Sat (Measured) ABG O2 Content ABG Base Excess Gera Test VBG pH POC VBG pCO2 POC VBG pO2 VBG HCO3 VBG O2 Sat (Denise) VBG Base Excess Patient On Oxygen O2 Delivery Device Oxygen Flow Rate Vent Mode Vent Rate Mechanical Rate PEEP Pressure Support Vent Sodium Potassium Chloride Carbon Dioxide Anion Gap BUN Creatinine Est GFR (CKD-EPI)AfAm Est GFR (CKD-EPI)NonAf POC Glucometer Random Glucose Hemoglobin A1c % Lactic Acid Calcium Phosphorus Magnesium Ferritin Total Bilirubin AST ALT Alkaline Phosphatase LD Total Creatine Kinase Troponin I C-Reactive Protein Total Protein Albumin TSH Urine Color Urine Appearance Urine pH Ur Specific [place] Urine Protein Urine Glucose (UA) Urine Ketones Urine Blood Urine Nitrite Urine Bilirubin Urine Urobilinogen Ur Leukocyte Esterase COVID-19 (VIRGEN) Blood Type Antibody Screen 10/02/19 10/02/19 10/02/19 15:20 15:20 15:20 WBC RBC Hgb Hct MCV MCH MCHC RDW Plt Count MPV Absolute Neuts (auto) Neutrophils % Lymphocytes % Monocytes % Eosinophils % Basophils % Nucleated RBC % ESR PT with INR INR PTT (Actin FS) D-Dimer Anticoagulation Therapy Puncture Site Patient Temperature ABG pH ABG pCO2 ABG pO2 ABG HCO3 ABG O2 Sat (Measured) ABG O2 Content ABG Base Excess Gera Test VBG pH POC VBG pCO2 POC VBG pO2 VBG HCO3 VBG O2 Sat (Denise) VBG Base Excess Patient On Oxygen O2 Delivery Device Oxygen Flow Rate Vent Mode Vent Rate Mechanical Rate PEEP Pressure Support Vent Sodium 141 Potassium 4.4 Chloride 108 H Carbon Dioxide 18 L Anion Gap 15 BUN 19.4 H Creatinine 1.4 H Est GFR (CKD-EPI)AfAm 55.38 Est GFR (CKD-EPI)NonAf 47.78 POC Glucometer Random Glucose 228 H Hemoglobin A1c % Lactic Acid 8.2 H* Calcium 9.7 Phosphorus Magnesium 2.2 Ferritin 20.8 Total Bilirubin 0.5 AST 44 H ALT 31 Alkaline Phosphatase 91 LD Total 391 H Creatine Kinase 115 Troponin I < 0.02 C-Reactive Protein < 0.3 Total Protein 6.6 Albumin 2.8 L TSH Urine Color Urine Appearance Urine pH Ur Specific [place] Urine Protein Urine Glucose (UA) Urine Ketones Urine Blood Urine Nitrite Urine Bilirubin Urine Urobilinogen Ur Leukocyte Esterase COVID-19 (VIRGEN) Blood Type Cancelled Antibody Screen Cancelled 10/02/19 10/02/19 10/02/19 15:20 16:00 21:00 WBC RBC Hgb Hct MCV MCH MCHC RDW Plt Count MPV Absolute Neuts (auto) Neutrophils % Lymphocytes % Monocytes % Eosinophils % Basophils % Nucleated RBC % ESR PT with INR INR PTT (Actin FS) D-Dimer Anticoagulation Therapy Puncture Site Patient Temperature ABG pH ABG pCO2 ABG pO2 ABG HCO3 ABG O2 Sat (Measured) ABG O2 Content ABG Base Excess Gera Test VBG pH 7.273 L POC VBG pCO2 41.4 POC VBG pO2 38.3 VBG HCO3 18.7 L VBG O2 Sat (Denise) 65.5 L VBG Base Excess -7.7 L Patient On Oxygen O2 Delivery Device Oxygen Flow Rate Vent Mode Vent Rate Mechanical Rate PEEP Pressure Support Vent Sodium Potassium Chloride Carbon Dioxide Anion Gap BUN Creatinine Est GFR (CKD-EPI)AfAm Est GFR (CKD-EPI)NonAf POC Glucometer Random Glucose Hemoglobin A1c % Lactic Acid 2.5 H* Calcium Phosphorus Magnesium Ferritin Total Bilirubin AST ALT Alkaline Phosphatase LD Total Creatine Kinase Troponin I C-Reactive Protein Total Protein Albumin TSH Urine Color Urine Appearance Urine pH Ur Specific [place] Urine Protein Urine Glucose (UA) Urine Ketones Urine Blood Urine Nitrite Urine Bilirubin Urine Urobilinogen Ur Leukocyte Esterase COVID-19 (VIRGEN) Not detected Blood Type Antibody Screen 10/02/19 10/02/19 10/02/19 22:20 23:39 23:41 WBC RBC Hgb Hct MCV MCH MCHC RDW Plt Count MPV Absolute Neuts (auto) Neutrophils % Lymphocytes % Monocytes % Eosinophils % Basophils % Nucleated RBC % ESR PT with INR INR PTT (Actin FS) D-Dimer Anticoagulation Therapy Puncture Site Patient Temperature ABG pH ABG pCO2 ABG pO2 ABG HCO3 ABG O2 Sat (Measured) ABG O2 Content ABG Base Excess Gera Test VBG pH POC VBG pCO2 POC VBG pO2 VBG HCO3 VBG O2 Sat (Denise) VBG Base Excess Patient On Oxygen O2 Delivery Device Oxygen Flow Rate Vent Mode Vent Rate Mechanical Rate PEEP Pressure Support Vent Sodium Potassium Chloride Carbon Dioxide Anion Gap BUN Creatinine Est GFR (CKD-EPI)AfAm Est GFR (CKD-EPI)NonAf POC Glucometer 150 Random Glucose Hemoglobin A1c % Lactic Acid Calcium Phosphorus Magnesium Ferritin Total Bilirubin AST ALT Alkaline Phosphatase LD Total Creatine Kinase Troponin I 0.27 H C-Reactive Protein Total Protein Albumin TSH Urine Color Yellow Urine Appearance Clear Urine pH 5.0 Ur Specific [place] 1.028 Urine Protein Trace Urine Glucose (UA) 3+ H Urine Ketones Negative Urine Blood Negative Urine Nitrite Negative Urine Bilirubin Negative Urine Urobilinogen 0.2 Ur Leukocyte Esterase Negative COVID-19 (VIRGEN) Blood Type Antibody Screen 10/02/19 10/03/1920 23:45 03:41 03:41 WBC RBC Hgb Hct MCV MCH MCHC RDW Plt Count MPV Absolute Neuts (auto) Neutrophils % Lymphocytes % Monocytes % Eosinophils % Basophils % Nucleated RBC % ESR PT with INR INR PTT (Actin FS) D-Dimer Anticoagulation Therapy No Result Required. Puncture Site Right radial Patient Temperature No Result Required. ABG pH 7.368 ABG pCO2 38.30 ABG pO2 312.0 H ABG HCO3 21.5 L ABG O2 Sat (Measured) 99.7 H ABG O2 Content No Result Required. ABG Base Excess -3.3 L Gera Test Positive VBG pH POC VBG pCO2 POC VBG pO2 VBG HCO3 VBG O2 Sat (Denise) VBG Base Excess Patient On Oxygen Yes O2 Delivery Device Nonrebreather Oxygen Flow Rate 100 Vent Mode No Result Required. Vent Rate No Result Required. Mechanical Rate No Result Required. PEEP No Result Required. Pressure Support Vent No Result Required. Sodium Potassium Chloride Carbon Dioxide Anion Gap BUN Creatinine Est GFR (CKD-EPI)AfAm Est GFR (CKD-EPI)NonAf POC Glucometer Random Glucose Hemoglobin A1c % Lactic Acid 2.0 Calcium Phosphorus Magnesium Ferritin Total Bilirubin AST ALT Alkaline Phosphatase LD Total Creatine Kinase Troponin I 0.37 H C-Reactive Protein Total Protein Albumin TSH Urine Color Urine Appearance Urine pH Ur Specific [place] Urine Protein Urine Glucose (UA) Urine Ketones Urine Blood Urine Nitrite Urine Bilirubin Urine Urobilinogen Ur Leukocyte Esterase COVID-19 (VIRGEN) Blood Type Antibody Screen 10/03/19 10/03/19 10/03/19 06:05 06:05 06:05 WBC 11.7 H RBC 4.81 Hgb 13.8 Hct 43.3 MCV 90.1 MCH 28.8 MCHC 31.9 L RDW 15.1 Plt Count 259 MPV 8.7 D Absolute Neuts (auto) 8.8 H Neutrophils % 75.0 Lymphocytes % 16.0 D Monocytes % 6.4 Eosinophils % 2.1 D Basophils % 0.5 Nucleated RBC % 0 ESR 7 PT with INR INR PTT (Actin FS) D-Dimer Anticoagulation Therapy Puncture Site Patient Temperature ABG pH ABG pCO2 ABG pO2 ABG HCO3 ABG O2 Sat (Measured) ABG O2 Content ABG Base Excess Gera Test VBG pH POC VBG pCO2 POC VBG pO2 VBG HCO3 VBG O2 Sat (Denise) VBG Base Excess Patient On Oxygen O2 Delivery Device Oxygen Flow Rate Vent Mode Vent Rate Mechanical Rate PEEP Pressure Support Vent Sodium 142 Potassium 4.6 Chloride 109 H Carbon Dioxide 24 Anion Gap 9 BUN 17.2 Creatinine 1.1 Est GFR (CKD-EPI)AfAm 74.13 Est GFR (CKD-EPI)NonAf 63.96 POC Glucometer Random Glucose 119 H Hemoglobin A1c % 7.7 H Lactic Acid Calcium 8.9 Phosphorus 4.8 Magnesium 2.1 Ferritin 24.8 Total Bilirubin 0.5 AST 56 H ALT 38 Alkaline Phosphatase 85 LD Total 221 Creatine Kinase Troponin I C-Reactive Protein 2.2 H Total Protein 6.4 Albumin 3.0 L TSH 2.08 Urine Color Urine Appearance Urine pH Ur Specific [place] Urine Protein Urine Glucose (UA) Urine Ketones Urine Blood Urine Nitrite Urine Bilirubin Urine Urobilinogen Ur Leukocyte Esterase COVID-19 (VIRGEN) Blood Type Antibody Screen 10/03/19 10/03/19 10/03/19 07:07 08:06 08:06 WBC RBC Hgb Hct MCV MCH MCHC RDW Plt Count MPV Absolute Neuts (auto) Neutrophils % Lymphocytes % Monocytes % Eosinophils % Basophils % Nucleated RBC % ESR PT with INR INR PTT (Actin FS) D-Dimer 7487 H Anticoagulation Therapy Puncture Site Patient Temperature ABG pH ABG pCO2 ABG pO2 ABG HCO3 ABG O2 Sat (Measured) ABG O2 Content ABG Base Excess Gera Test VBG pH POC VBG pCO2 POC VBG pO2 VBG HCO3 VBG O2 Sat (Denise) VBG Base Excess Patient On Oxygen O2 Delivery Device Oxygen Flow Rate Vent Mode Vent Rate Mechanical Rate PEEP Pressure Support Vent Sodium Potassium Chloride Carbon Dioxide Anion Gap BUN Creatinine Est GFR (CKD-EPI)AfAm Est GFR (CKD-EPI)NonAf POC Glucometer 110 Random Glucose Hemoglobin A1c % Lactic Acid Calcium Phosphorus Magnesium Ferritin Total Bilirubin AST ALT Alkaline Phosphatase LD Total Creatine Kinase Troponin I 0.34 H C-Reactive Protein Total Protein Albumin TSH Urine Color Urine Appearance Urine pH Ur Specific [place] Urine Protein Urine Glucose (UA) Urine Ketones Urine Blood Urine Nitrite Urine Bilirubin Urine Urobilinogen Ur Leukocyte Esterase COVID-19 (VIRGEN) Blood Type Antibody Screen 10/03/19 11:28 WBC RBC Hgb Hct MCV MCH MCHC RDW Plt Count MPV Absolute Neuts (auto) Neutrophils % Lymphocytes % Monocytes % Eosinophils % Basophils % Nucleated RBC % ESR PT with INR INR PTT (Actin FS) D-Dimer Anticoagulation Therapy Puncture Site Patient Temperature ABG pH ABG pCO2 ABG pO2 ABG HCO3 ABG O2 Sat (Measured) ABG O2 Content ABG Base Excess Gera Test VBG pH POC VBG pCO2 POC VBG pO2 VBG HCO3 VBG O2 Sat (Denise) VBG Base Excess Patient On Oxygen O2 Delivery Device Oxygen Flow Rate Vent Mode Vent Rate Mechanical Rate PEEP Pressure Support Vent Sodium Potassium Chloride Carbon Dioxide Anion Gap BUN Creatinine Est GFR (CKD-EPI)AfAm Est GFR (CKD-EPI)NonAf POC Glucometer 163 Random Glucose Hemoglobin A1c % Lactic Acid Calcium Phosphorus Magnesium Ferritin Total Bilirubin AST ALT Alkaline Phosphatase LD Total Creatine Kinase Troponin I C-Reactive Protein Total Protein Albumin TSH Urine Color Urine Appearance Urine pH Ur Specific [place] Urine Protein Urine Glucose (UA) Urine Ketones Urine Blood Urine Nitrite Urine Bilirubin Urine Urobilinogen Ur Leukocyte Esterase COVID-19 (VIRGEN) Blood Type Antibody Screen Active Medications Generic Name Dose Route Start Last Admin Trade Name Freq PRN Reason Stop Dose Admin Apixaban 5 mg 10/03/19 22:00 Eliquis - PO BID RAMU Aspirin 81 mg 10/03/19 04:53 10/03/19 10:35 Asa - PO Not Given DAILY RAMU Atorvastatin Calcium 20 mg 10/03/19 04:55 Lipitor - PO HS RAMU Gabapentin 100 mg 10/03/19 22:00 Neurontin - PO HS RAMU Sodium Chloride 1,000 mls @ 83 mls/hr 10/03/19 00:15 10/03/19 00:38 Normal Saline - IV 83 mls/hr ASDIR RAMU Administration Insulin Aspart 1 vial 10/03/19 07:00 10/03/19 11:30 Novolog Vial Sliding Scale - SQ 2 units ACHS RAMU Administration Protocol Insulin Detemir 40 units 10/03/19 22:00 Levemir Vial SQ HS RAMU Levothyroxine Sodium 50 mcg 10/03/19 07:00 10/03/19 07:10 Synthroid - PO 50 mcg DAILY@0700 RAMU Administration Lisinopril 5 mg 10/03/19 10:00 10/03/19 10:00 Prinivil PO 5 mg DAILY RAMU Administration Piperacillin Sod/Tazobactam Sod 3.375 gm 10/03/19 00:45 10/03/19 10:00 Zosyn 3.375gm Ivpb (Pre-Docked) IVPB 10/03/19 18:01 3.375 gm Q8H-IV RAMU Administration Piperacillin Sod/Tazobactam Sod 3.375 gm 10/04/19 02:00 Zosyn 3.375gm Ivpb (Pre-Docked) IVPB Q8H-IV RAMU Tamsulosin HCl 0.4 mg 10/04/19 08:30 Flomax - PO DAILY@0830 RAMU Vancomycin HCl 1,000 mg 10/04/19 00:45 Vancomycin (Pre-Docked) IVPB Q24H RAMU ASSESSMENT/PLAN: 79 yo male PMHx of HTN, HLD, Hypothyroid, IDDM2 & BPH presents to the ED s/p syncopal episode while having diarrhea. Had similar episode of syncope 2 months ago in [place]. In ED, found to have elevated lactic acid, inflammatory markers, & troponin in ED, as well as BL atelectasis on CT. Admitted to tele for workup of syncope, suspected sepsis 2/2 pneumonia vs covid Syncope: 2/2 orthostatic hypotension, vs volume depletion, vs, cardiac arrhythmia - repeat EKG NSR w/no ischemic changes - repleted with IVF, BP improved - Troponin 0.27>>0.37>> 0.34 most likely demand ischemia - Next trop for 2 PM - Cardiology consulted (Dr. Bell) Continue fluid recessutation and pressors if needed Hold All BP meds and DM meds at this time. - cardiac echo, EF 65% - admit to tele for cardiac monitoring - orthostatics ordered Possible Sepsis: 2/2 pneumonia, vs covid vs unknown source - Patient presented hypotensive, tachycardia, with leukocytosis, high lactic acid with CXR and CT chest showing possible pulmonary source - patient BP improved with fluids - blood cultures pending - started on zosyn and given 1 dose of Vanc - Patient WBC improving - ID consulted (Dr. Orourke) - Pulmonology consulted (Dr. Gonzalez) Supplemental O2 as needed Incentive Spirometry - Nasal swab for MRSA, if negative, will stop zosyn and start azithro + cipro - Covid pending - Eliquis 5 mg BID for prophylaxis - CTA negative for PE - continue to trend inflammatory markers IDDM2 - continue levamir 40 units HS - SSI Hypothyroidism - continue synthroid HLD - continue Lipitor HTN - hold lisinopril for nwo - consider holding afluzosin as it may be contributing to orthostatic hypotension - fall precautions DVT prophylaxis - Eliquis 5 mg BID FEN - IVF - Diabetic diet - replete electrolytes as needed Visit type - Emergency Visit Emergency Visit: Yes ED Registration Date: 10/02/19 Care time: The patient presented to the Emergency Department on the above date and was hospitalized for further evaluation of their emergent condition. - New Patient This patient is new to me today: Yes Date on this admission: 10/02/19 - Critical Care Critical Care patient: No - Discharge Referral Referred to [facility] Med P.C.: No - Medication Review Med list reviewed for High Risk Meds patients 65 and older: Yes ATTENDING PHYSICIAN STATEMENT I saw and evaluated the patient. I reviewed the resident's note and discussed the case with the resident. I agree with the resident's findings and plan as documented. SUBJECTIVE: OBJECTIVE: ASSESSMENT AND PLAN:
[2019-10-03 14:01] VITALS: BMI 26.7
--- NOTE | 2019-10-03 15:10 | PN ---
Teaching Attending Note Name of Resident: Louise Mcnamara ATTENDING PHYSICIAN STATEMENT I saw and evaluated the patient. I reviewed the resident's note and discussed the case with the resident. I agree with the resident's findings and plan as documented. SUBJECTIVE: Patient feels well, is hungry spoke to patient's daughter and updated her his condition OBJECTIVE: Vital Signs Period Temp Pulse Resp BP Sys/Alfred Pulse Ox Last 24 Hr 97.8 F-98.6 F 66-93 17-22 71-130/49-89 97-100 GENERAL: Awake, alert, and fully oriented, in no acute distress. HEAD: Normal with no signs of trauma. EYES: Pupils equal, round and reactive to light, extraocular movements intact, sclera anicteric, conjunctiva clear. No lid lag. EARS, NOSE, THROAT: Ears normal, nares patent, oropharynx clear without exudates. Moist mucous membranes. NECK: Normal range of motion, supple without lymphadenopathy, JVD, or masses. LUNGS: Breath sounds equal, clear to auscultation bilaterally. No wheezes, and no crackles. No accessory muscle use. HEART: Regular rate and rhythm, normal S1 and S2 without murmur, rub or gallop. ABDOMEN: Soft, nontender, not distended, normoactive bowel sounds, no guarding, no rebound, no masses. No hepatomegaly or splenomegaly. obese MUSCULOSKELETAL: Normal range of motion at all joints. No bony deformities or tenderness. No CVA tenderness. UPPER EXTREMITIES: 2+ pulses, warm, well-perfused. No cyanosis. No clubbing. Cap refill <2 seconds. No peripheral edema. LOWER EXTREMITIES: 2+ pulses, warm, well-perfused. No calf tenderness. No peripheral edema. NEUROLOGICAL: Cranial nerves II-XII intact. Normal speech. Normal gait. PSYCHIATRIC: Cooperative. Good eye contact. Appropriate mood and affect. SKIN: Warm, dry, normal turgor, no rashes or lesions noted. ASSESSMENT AND PLAN: 79 y/o M who presents with pre-syncopal episode. Patient also found to have leukocytosis Pre-Syncope likley Vasovagal etiology vs. underlying infection s/p IV Fluid administration Patient advised on daily bowel regimen adn to avoid straining f.u COVID swab Monitor on tele--no events at this time Continue IV abx for possible underlying infection--patient does not have any clinical features of infection Pending 2D echo Continue Eliquis in setting of elevated D Dimer
[2019-10-03] MEDS ORDERED: PIPERACILLIN/TAZOBACTAM 3.375 GM VIAL IVPB ONE (17:35)
[2019-10-03] MEDS ORDERED: DEXTROSE 5%-WATER - 50 ML IVPB ONE (17:36)
[2019-10-03] MEDS ORDERED: PIPERACILLIN/TAZOB 3.375 GM 3.375 GM in DEXTROSE 5%-WATER - 50 ML IVPB SCH (18:00)
[2019-10-03] MEDS: PIPERACILLIN/TAZOB 3.375 GM 3.375 GM in DEXTROSE 5%-WATER - 50 ML IVPB SCH (18:02)
[2019-10-03] MEDS: APIXABAN 5 MG TABLET PO SCH (21:49)
[2019-10-03] MEDS ORDERED: GABAPENTIN 100 MG CAPSULE PO SCH (22:00)
[2019-10-03] MEDS ORDERED: INSULIN (LEVEMIR) 100 UNITS/ML UNITS SQ SCH (22:00)
[2019-10-03] MEDS ORDERED: AZITHROMYCIN IVPB 500 MG in DEXTROSE 5%-WATER - 250 ML IVPB ONE (23:46)
[2019-10-04] MEDS ORDERED: DEXTROSE 5%-WATER - 50 ML IVPB ONE (00:38)
[2019-10-04] MEDS ORDERED: PIPERACILLIN/TAZOBACTAM 3.375 GM VIAL IVPB ONE (00:38)
[2019-10-04] MEDS ORDERED: VANCOMYCIN 1 GM in D5W (PRE-DOCKED) 1,000 MG/250 ML IVPB SCH (00:45)
[2019-10-04] MEDS: PIPERACILLIN/TAZOB 3.375 GM 3.375 GM in DEXTROSE 5%-WATER - 50 ML IVPB SCH (01:02)
[2019-10-04] MEDS: SODIUM CHLORIDE 1,000 ML IV SCH (01:03)
[2019-10-04 01:51] VITALS: TEMP 98
[2019-10-04] MEDS ORDERED: PIPERACILLIN/TAZOB 3.375 GM/50 ML PRE-DOCKED IVPB SCH (02:00)
[2019-10-04] MEDS: INSULIN SLIDING SCALE (NOVOLOG) 1 VIAL SQ SCH ×2 (06:09→11:16)
[2019-10-04] MEDS: LEVOTHYROXINE NA 50 MCG TABLET (FP) PO SCH (06:36)
[2019-10-04 07:45] LABS: BASO % 0.5 % (0-2.0); EOS % 4.5 % (0-4.5); HEMATOCRIT 38.1 % (35.4-49); HEMOGLOBIN 12.4 GM/dL (11.7-16.9); LYMPH % 20.7 % (8-40); MCH 28.9 pg (25.7-33.7); MCHC 32.4 g/dl (32.0-35.9); MEAN CELL VOLUME 89.2 fl (80-96); MONO % 8.8 % (3.8-10.2); NEUT % 65.5 % (42.8-82.8); PLATELET COUNT 233 K/MM3 (134-434); RBC 4.27 M/mm3 (4.00-5.60); RDW 14.7 % (11.9-15.9); WHITE BLOOD COUNT 9.2 K/mm3 (4.0-10.0)
[2019-10-04] MEDS ORDERED: TAMSULOSIN HCL 0.4 MG CAP PO SCH (08:30)
[2019-10-04 08:38] LABS: POTASSIUM 4.1 mmol/L (3.5-5.1)
[2019-10-04 08:47] LABS: BLOOD UREA NITROGEN 11.6 mg/dL (7-18); CALCIUM 8.5 mg/dL (8.5-10.1); MAGNESIUM 2.1 mg/dL (1.8-2.4)
--- NOTE | 2019-10-04 09:10 | EKG ---
Test Reason : Blood Pressure : / mmHG Vent. Rate : 070 BPM Atrial Rate : 070 BPM P-R Int : 150 ms QRS Dur : 088 ms QT Int : 390 ms P-R-T Axes : 044 -01 050 degrees QTc Int : 421 ms NORMAL SINUS RHYTHM NORMAL ECG WHEN COMPARED WITH ECG OF 02-OCT-2019 23:28, NO SIGNIFICANT CHANGE WAS FOUND Confirmed by Bravo Bell ([id number]) on 10/04/2019 9:09:27 AM Referred By: Confirmed By:Bravo Bell
[2019-10-04] MEDS: ASPIRIN 81 MG CHEWABLE TABLETS PO SCH (09:19)
[2019-10-04] MEDS: APIXABAN 5 MG TABLET PO SCH (09:19)
--- NOTE | 2019-10-04 10:15 | PN ---
Progress Note, Physician Chief Complaint: Telem NSR No cough or dyspnea - Current Medication List Current Medications: Active Medications Apixaban (Eliquis -) 5 mg PO BID [facility] Last Admin: 10/04/19 09:19 Dose: 5 mg Documented by: Aspirin (Asa -) 81 mg PO DAILY [facility] Last Admin: 10/04/19 09:19 Dose: 81 mg Documented by: Atorvastatin Calcium (Lipitor -) 20 mg PO [facility] Last Admin: 10/03/19 21:49 Dose: 20 mg Documented by: Gabapentin (Neurontin -) 100 mg PO [facility] Last Admin: 10/03/19 21:49 Dose: 100 mg Documented by: Sodium Chloride (Normal Saline -) 1,000 mls @ 83 mls/hr IV ASDIR [facility] Last Admin: 10/04/19 01:03 Dose: 83 mls/hr Documented by: Insulin Aspart (Novolog Vial Sliding Scale -) 1 vial SQ [facility]; Protocol Last Admin: 10/04/19 06:09 Dose: Not Given Documented by: Insulin Detemir (Levemir Vial) 40 units SQ [facility] Last Admin: 10/03/19 22:53 Dose: Not Given Documented by: Levothyroxine Sodium (Synthroid -) 50 mcg PO DAILY@0700 [facility] Last Admin: 10/04/19 06:36 Dose: 50 mcg Documented by: Lisinopril (Prinivil) 5 mg PO DAILY [facility] Last Admin: 10/03/19 10:00 Dose: 5 mg Documented by: Tamsulosin HCl (Flomax -) 0.4 mg PO DAILY@0830 [facility] Last Admin: 10/04/19 09:19 Dose: 0.4 mg Documented by: - Objective Vital Signs: Vital Signs Temperature 98 F 10/04/19 09:50 Pulse Rate 74 10/04/19 09:50 Respiratory Rate 18 10/04/19 09:50 Blood Pressure 115/59 L 10/04/19 09:50 O2 Sat by Pulse Oximetry (%) 96 10/03/19 22:00 Constitutional: Yes: Well Nourished, No Distress Eyes: Yes: Conjunctiva Clear HENT: Yes: Atraumatic, Normocephalic Neck: Yes: Supple, Trachea Midline Respiratory: Yes: Regular, CTA Bilaterally Gastrointestinal: Yes: Normal Bowel Sounds Musculoskeletal: Yes: WNL Extremities: Yes: WNL Edema: No Labs: CBC, BMP 10/04/19 06:08 10/04/19 06:08 INR, PTT INR 1.00 (0.83-1.09) 10/02/19 15:20 Problem List - Problems (1) Hypovolemia Code(s): E86.1 - HYPOVOLEMIA (2) Lactic acidosis Code(s): E87.2 - ACIDOSIS Assessment/Plan 79 M with loose BP dizziness, hypotension, leukocytosis, lactic acidosis and mildly elevated TP. Echocardiogram showed normal LV function. Volume depletion and possibly Sepsis at presentation improved with volume resuscitation. Unlikely vasovagal event. Normal LV function and mild TP elevation due to demand mediated ischemia from hypotension. ASA for primary prevention is reasonable. Pt was stated on Abx. CTPA negative for PE. No congestive heart failure. Elevated D-dimer. COVID test pending. Hold All BP meds including ACEI. DVT prophylaxis. will see as needed.
--- NOTE | 2019-10-04 10:36 | PN ---
Progress Note, Physician History of Present Illness: stable no new issues feeling much better - Current Medication List Current Medications: Active Medications Apixaban (Eliquis -) 5 mg PO BID [facility] Last Admin: 10/04/19 09:19 Dose: 5 mg Documented by: Aspirin (Asa -) 81 mg PO DAILY [facility] Last Admin: 10/04/19 09:19 Dose: 81 mg Documented by: Atorvastatin Calcium (Lipitor -) 20 mg PO [facility] Last Admin: 10/03/19 21:49 Dose: 20 mg Documented by: Gabapentin (Neurontin -) 100 mg PO [facility] Last Admin: 10/03/19 21:49 Dose: 100 mg Documented by: Sodium Chloride (Normal Saline -) 1,000 mls @ 83 mls/hr IV ASDIR [facility] Last Admin: 10/04/19 01:03 Dose: 83 mls/hr Documented by: Insulin Aspart (Novolog Vial Sliding Scale -) 1 vial SQ [facility]; Protocol Last Admin: 10/04/19 06:09 Dose: Not Given Documented by: Insulin Detemir (Levemir Vial) 40 units SQ [facility] Last Admin: 10/03/19 22:53 Dose: Not Given Documented by: Levothyroxine Sodium (Synthroid -) 50 mcg PO DAILY@0700 [facility] Last Admin: 10/04/19 06:36 Dose: 50 mcg Documented by: Lisinopril (Prinivil) 5 mg PO DAILY [facility] Last Admin: 10/03/19 10:00 Dose: 5 mg Documented by: Tamsulosin HCl (Flomax -) 0.4 mg PO DAILY@0830 [facility] Last Admin: 10/04/19 09:19 Dose: 0.4 mg Documented by: - Objective Vital Signs: Vital Signs Temperature 98 F 10/04/19 09:50 Pulse Rate 74 10/04/19 09:50 Respiratory Rate 18 10/04/19 09:50 Blood Pressure 115/59 L 10/04/19 09:50 O2 Sat by Pulse Oximetry (%) 96 10/03/19 22:00 Constitutional: Yes: No Distress, Calm Cardiovascular: Yes: S1, S2 Respiratory: Yes: Regular, CTA Bilaterally Gastrointestinal: Yes: Normal Bowel Sounds, Soft Musculoskeletal: Yes: WNL Extremities: Yes: WNL Neurological: Yes: Alert, Oriented Psychiatric: Yes: Alert, Oriented Labs: CBC, BMP 10/04/19 06:08 10/04/19 06:08 INR, PTT INR 1.00 (0.83-1.09) 10/02/19 15:20 Assessment/Plan syncope\ pneumonia leukocytosis confusion plan wbc has normalized can stop abx rest as per the team
--- NOTE | 2019-10-04 11:08 | PN ---
Progress Note, Physician History of Present Illness: pulmonary alert,comfortable,-resp distress - Current Medication List Current Medications: Active Medications Apixaban (Eliquis -) 5 mg PO BID [facility], [facility]1983 Last Admin: 10/04/19 09:19 Dose: 5 mg Documented by: Aspirin (Asa -) 81 mg PO DAILY [facility], [facility]1983 Last Admin: 10/04/19 09:19 Dose: 81 mg Documented by: Atorvastatin Calcium (Lipitor -) 20 mg PO [facility] Last Admin: 10/03/19 21:49 Dose: 20 mg Documented by: Gabapentin (Neurontin -) 100 mg PO [facility] Last Admin: 10/03/19 21:49 Dose: 100 mg Documented by: Sodium Chloride (Normal Saline -) 1,000 mls @ 83 mls/hr IV ASDIR [facility], [facility]1983 Last Admin: 10/04/19 01:03 Dose: 83 mls/hr Documented by: Insulin Aspart (Novolog Vial Sliding Scale -) 1 vial SQ [facility]; Protocol Last Admin: 10/04/19 06:09 Dose: Not Given Documented by: Insulin Detemir (Levemir Vial) 40 units SQ [facility] Last Admin: 10/03/19 22:53 Dose: Not Given Documented by: Levothyroxine Sodium (Synthroid -) 50 mcg PO DAILY@0700 [facility], [facility]1983 Last Admin: 10/04/19 06:36 Dose: 50 mcg Documented by: Lisinopril (Prinivil) 5 mg PO DAILY [facility] Last Admin: 10/03/19 10:00 Dose: 5 mg Documented by: Tamsulosin HCl (Flomax -) 0.4 mg PO DAILY@0830 [facility] Last Admin: 10/04/19 09:19 Dose: 0.4 mg Documented by: - Objective Vital Signs: Vital Signs Temperature 98 F 10/04/19 09:50 Pulse Rate 74 10/04/19 09:50 Respiratory Rate 18 10/04/19 09:50 Blood Pressure 115/59 L 10/04/19 09:50 O2 Sat by Pulse Oximetry (%) 96 10/03/19 22:00 Constitutional: Yes: Well Nourished, Calm Eyes: Yes: WNL HENT: Yes: WNL Neck: Yes: WNL Cardiovascular: Yes: Regular Rate and Rhythm, S1, S2 Respiratory: Yes: CTA Bilaterally Gastrointestinal: Yes: Normal Bowel Sounds, Soft Extremities: Yes: WNL Edema: No Labs: CBC, BMP 10/04/19 06:08 10/04/19 06:08 INR, PTT INR 1.00 (0.83-1.09) 10/02/19 15:20 Assessment/Plan Problem List - Problems (1) Atelectasis of both lungs Code(s): J98.11 - ATELECTASIS (2) Lung consolidation Code(s): J18.1 - LOBAR PNEUMONIA, UNSPECIFIED ORGANISM (3) Pneumonia Code(s): J18.9 - PNEUMONIA, UNSPECIFIED ORGANISM (4) Hypovolemia Code(s): E86.1 - HYPOVOLEMIA (5) Near syncope Code(s): R55 - SYNCOPE AND COLLAPSE Assessment/Plan IMP: Bibasilar atelectasis due to splinting due to recent fall Suspected CAP PLAN: Supplemental O2 as needed Patient had a (-) COVID19 test less than 3 weeks ago at [facility] No smoking VTE prophylaxis Fall precautions Incentive Spirometry DR SANCHEZ
--- NOTE | 2019-10-04 12:16 | PN ---
Teaching Attending Note Name of Resident: Louise Mcnamara ATTENDING PHYSICIAN STATEMENT I saw and evaluated the patient. I reviewed the resident's note and discussed the case with the resident. I agree with the resident's findings and plan as documented. SUBJECTIVE: Pt feels well, has no complaints OBJECTIVE: Vital Signs Period Temp Pulse Resp BP Sys/Alfred Pulse Ox Last 24 Hr 98 F-98.7 F 66-82 17-20 90-115/52-73 96-98 GENERAL: Awake, alert, and fully oriented, in no acute distress. HEAD: Normal with no signs of trauma. EYES: Pupils equal, round and reactive to light, extraocular movements intact, sclera anicteric, conjunctiva clear. No lid lag. EARS, NOSE, THROAT: Ears normal, nares patent, oropharynx clear without exudates. Moist mucous membranes. NECK: Normal range of motion, supple without lymphadenopathy, JVD, or masses. LUNGS: Breath sounds equal, clear to auscultation bilaterally. No wheezes, and no crackles. No accessory muscle use. HEART: Regular rate and rhythm, normal S1 and S2 without murmur, rub or gallop. ABDOMEN: Soft, nontender, not distended, normoactive bowel sounds, no guarding, no rebound, no masses. No hepatomegaly or splenomegaly. Obese MUSCULOSKELETAL: Normal range of motion at all joints. No bony deformities or tenderness. No CVA tenderness. UPPER EXTREMITIES: 2+ pulses, warm, well-perfused. No cyanosis. No clubbing. Cap refill <2 seconds. No peripheral edema. LOWER EXTREMITIES: 2+ pulses, warm, well-perfused. No calf tenderness. No peripheral edema. NEUROLOGICAL: Cranial nerves II-XII intact. Normal speech. Normal gait. PSYCHIATRIC: Cooperative. Good eye contact. Appropriate mood and affect. SKIN: Warm, dry, normal turgor, no rashes or lesions noted. labs/imaging reviewed ASSESSMENT AND PLAN: 79 y/o M who presents with vasovagal syncope. Syncope: Likely in setting of straining to defecate Will hold patient's home Bp meds Advised to follow strict diet regimen Echo wnl, no events on tele overnight Elevated D Dimer likely in setting of hypovolemia during the no signs of acute thrombus noted unclear covid status, will discharge with 1 month supply of AC at this time, and for outpatient follow up for cessation Leukocytosis: likely stress induced now resolved discharge off abx Plan to discharge today Please see discharge summary for additional information
--- NOTE | 2019-10-04 12:29 | DS ---
Physical Exam: SUBJECTIVE: Patient seen and examined bedside, in no acute distress. No events over night. Denies chest pain, SOB, N/v/d, or syncopal episodes. OBJECTIVE: Vital Signs Period Temp Pulse Resp BP Sys/Alfred Pulse Ox Last 24 Hr 98 F-98.7 F 66-82 17-20 90-115/52-73 96-98 PHYSICAL EXAM GENERAL: The patient is awake, alert, and fully oriented HEAD: Normal with no signs of trauma. EYES: PERRL, extraocular movements intact, sclera anicteric, conjunctiva clear. ENT: moist mucous membranes. LUNGS: Breath sounds equal, CTA BL HEART: Regular rate and rhythm, S1, S2 ABDOMEN: Soft, nontender, nondistended EXTREMITIES:warm, well-perfused, no edema. NEUROLOGICAL: Normal speech PSYCH: Normal mood, normal affect. SKIN: Warm, dry, normal turgor, no rashes or lesions noted. LABS Laboratory Tests 10/02/19 10/02/19 10/02/19 15:20 15:20 15:20 WBC 18.8 H RBC 5.52 Hgb 15.8 Hct 50.2 H MCV 91.0 MCH 28.7 MCHC 31.5 L RDW 15.1 Plt Count 306 MPV 9.7 Absolute Neuts (auto) 15.0 H Neutrophils % 79.7 Lymphocytes % 13.1 Monocytes % 5.4 Eosinophils % 1.1 Basophils % 0.7 Nucleated RBC % 0 ESR PT with INR 11.80 INR 1.00 PTT (Actin FS) 27.8 D-Dimer 85449 H Anticoagulation Therapy Puncture Site Patient Temperature ABG pH ABG pCO2 ABG pO2 ABG HCO3 ABG O2 Sat (Measured) ABG O2 Content ABG Base Excess Gera Test VBG pH POC VBG pCO2 POC VBG pO2 VBG HCO3 VBG O2 Sat (Denise) VBG Base Excess Patient On Oxygen O2 Delivery Device Oxygen Flow Rate Vent Mode Vent Rate Mechanical Rate PEEP Pressure Support Vent Sodium Potassium Chloride Carbon Dioxide Anion Gap BUN Creatinine Est GFR (CKD-EPI)AfAm Est GFR (CKD-EPI)NonAf POC Glucometer Random Glucose Hemoglobin A1c % Lactic Acid Calcium Phosphorus Magnesium Ferritin Total Bilirubin AST ALT Alkaline Phosphatase LD Total Creatine Kinase Troponin I C-Reactive Protein Total Protein Albumin TSH Urine Color Urine Appearance Urine pH Ur Specific Sparks Urine Protein Urine Glucose (UA) Urine Ketones Urine Blood Urine Nitrite Urine Bilirubin Urine Urobilinogen Ur Leukocyte Esterase Ur Random Creatinine U Random Total Protein Protein/Creatinin Ratio COVID-19 (VIRGEN) Blood Type Antibody Screen 10/02/19 10/02/19 10/02/19 15:20 15:20 15:20 WBC RBC Hgb Hct MCV MCH MCHC RDW Plt Count MPV Absolute Neuts (auto) Neutrophils % Lymphocytes % Monocytes % Eosinophils % Basophils % Nucleated RBC % ESR PT with INR INR PTT (Actin FS) D-Dimer Anticoagulation Therapy Puncture Site Patient Temperature ABG pH ABG pCO2 ABG pO2 ABG HCO3 ABG O2 Sat (Measured) ABG O2 Content ABG Base Excess Gera Test VBG pH POC VBG pCO2 POC VBG pO2 VBG HCO3 VBG O2 Sat (Denise) VBG Base Excess Patient On Oxygen O2 Delivery Device Oxygen Flow Rate Vent Mode Vent Rate Mechanical Rate PEEP Pressure Support Vent Sodium 141 Potassium 4.4 Chloride 108 H Carbon Dioxide 18 L Anion Gap 15 BUN 19.4 H Creatinine 1.4 H Est GFR (CKD-EPI)AfAm 55.38 Est GFR (CKD-EPI)NonAf 47.78 POC Glucometer Random Glucose 228 H Hemoglobin A1c % Lactic Acid 8.2 H* Calcium 9.7 Phosphorus Magnesium 2.2 Ferritin 20.8 Total Bilirubin 0.5 AST 44 H ALT 31 Alkaline Phosphatase 91 LD Total 391 H Creatine Kinase 115 Troponin I < 0.02 C-Reactive Protein < 0.3 Total Protein 6.6 Albumin 2.8 L TSH Urine Color Urine Appearance Urine pH Ur Specific Sparks Urine Protein Urine Glucose (UA) Urine Ketones Urine Blood Urine Nitrite Urine Bilirubin Urine Urobilinogen Ur Leukocyte Esterase Ur Random Creatinine U Random Total Protein Protein/Creatinin Ratio COVID-19 (VIRGEN) Blood Type Cancelled Antibody Screen Cancelled 10/02/19 10/02/19 10/02/19 15:20 16:00 21:00 WBC RBC Hgb Hct MCV MCH MCHC RDW Plt Count MPV Absolute Neuts (auto) Neutrophils % Lymphocytes % Monocytes % Eosinophils % Basophils % Nucleated RBC % ESR PT with INR INR PTT (Actin FS) D-Dimer Anticoagulation Therapy Puncture Site Patient Temperature ABG pH ABG pCO2 ABG pO2 ABG HCO3 ABG O2 Sat (Measured) ABG O2 Content ABG Base Excess Gera Test VBG pH 7.273 L POC VBG pCO2 41.4 POC VBG pO2 38.3 VBG HCO3 18.7 L VBG O2 Sat (Denise) 65.5 L VBG Base Excess -7.7 L Patient On Oxygen O2 Delivery Device Oxygen Flow Rate Vent Mode Vent Rate Mechanical Rate PEEP Pressure Support Vent Sodium Potassium Chloride Carbon Dioxide Anion Gap BUN Creatinine Est GFR (CKD-EPI)AfAm Est GFR (CKD-EPI)NonAf POC Glucometer Random Glucose Hemoglobin A1c % Lactic Acid 2.5 H* Calcium Phosphorus Magnesium Ferritin Total Bilirubin AST ALT Alkaline Phosphatase LD Total Creatine Kinase Troponin I C-Reactive Protein Total Protein Albumin TSH Urine Color Urine Appearance Urine pH Ur Specific Sparks Urine Protein Urine Glucose (UA) Urine Ketones Urine Blood Urine Nitrite Urine Bilirubin Urine Urobilinogen Ur Leukocyte Esterase Ur Random Creatinine U Random Total Protein Protein/Creatinin Ratio COVID-19 (VIRGEN) Not detected Blood Type Antibody Screen 10/02/19 10/02/19 10/02/19 22:20 23:39 23:41 WBC RBC Hgb Hct MCV MCH MCHC RDW Plt Count MPV Absolute Neuts (auto) Neutrophils % Lymphocytes % Monocytes % Eosinophils % Basophils % Nucleated RBC % ESR PT with INR INR PTT (Actin FS) D-Dimer Anticoagulation Therapy Puncture Site Patient Temperature ABG pH ABG pCO2 ABG pO2 ABG HCO3 ABG O2 Sat (Measured) ABG O2 Content ABG Base Excess Gera Test VBG pH POC VBG pCO2 POC VBG pO2 VBG HCO3 VBG O2 Sat (Denise) VBG Base Excess Patient On Oxygen O2 Delivery Device Oxygen Flow Rate Vent Mode Vent Rate Mechanical Rate PEEP Pressure Support Vent Sodium Potassium Chloride Carbon Dioxide Anion Gap BUN Creatinine Est GFR (CKD-EPI)AfAm Est GFR (CKD-EPI)NonAf POC Glucometer 150 Random Glucose Hemoglobin A1c % Lactic Acid Calcium Phosphorus Magnesium Ferritin Total Bilirubin AST ALT Alkaline Phosphatase LD Total Creatine Kinase Troponin I 0.27 H C-Reactive Protein Total Protein Albumin TSH Urine Color Yellow Urine Appearance Clear Urine pH 5.0 Ur Specific Sparks 1.028 Urine Protein Trace Urine Glucose (UA) 3+ H Urine Ketones Negative Urine Blood Negative Urine Nitrite Negative Urine Bilirubin Negative Urine Urobilinogen 0.2 Ur Leukocyte Esterase Negative Ur Random Creatinine U Random Total Protein Protein/Creatinin Ratio COVID-19 (VIRGEN) Blood Type Antibody Screen 10/02/19 10/03/19 10/03/19 23:45 03:41 03:41 WBC RBC Hgb Hct MCV MCH MCHC RDW Plt Count MPV Absolute Neuts (auto) Neutrophils % Lymphocytes % Monocytes % Eosinophils % Basophils % Nucleated RBC % ESR PT with INR INR PTT (Actin FS) D-Dimer Anticoagulation Therapy No Result Required. Puncture Site Right radial Patient Temperature No Result Required. ABG pH 7.368 ABG pCO2 38.30 ABG pO2 312.0 H ABG HCO3 21.5 L ABG O2 Sat (Measured) 99.7 H ABG O2 Content No Result Required. ABG Base Excess -3.3 L Gera Test Positive VBG pH POC VBG pCO2 POC VBG pO2 VBG HCO3 VBG O2 Sat (Denise) VBG Base Excess Patient On Oxygen Yes O2 Delivery Device Nonrebreather Oxygen Flow Rate 100 Vent Mode No Result Required. Vent Rate No Result Required. Mechanical Rate No Result Required. PEEP No Result Required. Pressure Support Vent No Result Required. Sodium Potassium Chloride Carbon Dioxide Anion Gap BUN Creatinine Est GFR (CKD-EPI)AfAm Est GFR (CKD-EPI)NonAf POC Glucometer Random Glucose Hemoglobin A1c % Lactic Acid 2.0 Calcium Phosphorus Magnesium Ferritin Total Bilirubin AST ALT Alkaline Phosphatase LD Total Creatine Kinase Troponin I 0.37 H C-Reactive Protein Total Protein Albumin TSH Urine Color Urine Appearance Urine pH Ur Specific Sparks Urine Protein Urine Glucose (UA) Urine Ketones Urine Blood Urine Nitrite Urine Bilirubin Urine Urobilinogen Ur Leukocyte Esterase Ur Random Creatinine U Random Total Protein Protein/Creatinin Ratio COVID-19 (VIRGEN) Blood Type Antibody Screen 10/03/19 10/03/19 10/03/19 06:05 06:05 06:05 WBC 11.7 H RBC 4.81 Hgb 13.8 Hct 43.3 MCV 90.1 MCH 28.8 MCHC 31.9 L RDW 15.1 Plt Count 259 MPV 8.7 D Absolute Neuts (auto) 8.8 H Neutrophils % 75.0 Lymphocytes % 16.0 D Monocytes % 6.4 Eosinophils % 2.1 D Basophils % 0.5 Nucleated RBC % 0 ESR 7 PT with INR INR PTT (Actin FS) D-Dimer Anticoagulation Therapy Puncture Site Patient Temperature ABG pH ABG pCO2 ABG pO2 ABG HCO3 ABG O2 Sat (Measured) ABG O2 Content ABG Base Excess Gera Test VBG pH POC VBG pCO2 POC VBG pO2 VBG HCO3 VBG O2 Sat (Denise) VBG Base Excess Patient On Oxygen O2 Delivery Device Oxygen Flow Rate Vent Mode Vent Rate Mechanical Rate PEEP Pressure Support Vent Sodium 142 Potassium 4.6 Chloride 109 H Carbon Dioxide 24 Anion Gap 9 BUN 17.2 Creatinine 1.1 Est GFR (CKD-EPI)AfAm 74.13 Est GFR (CKD-EPI)NonAf 63.96 POC Glucometer Random Glucose 119 H Hemoglobin A1c % 7.7 H Lactic Acid Calcium 8.9 Phosphorus 4.8 Magnesium 2.1 Ferritin 24.8 Total Bilirubin 0.5 AST 56 H ALT 38 Alkaline Phosphatase 85 LD Total 221 Creatine Kinase Troponin I C-Reactive Protein 2.2 H Total Protein 6.4 Albumin 3.0 L TSH 2.08 Urine Color Urine Appearance Urine pH Ur Specific Sparks Urine Protein Urine Glucose (UA) Urine Ketones Urine Blood Urine Nitrite Urine Bilirubin Urine Urobilinogen Ur Leukocyte Esterase Ur Random Creatinine U Random Total Protein Protein/Creatinin Ratio COVID-19 (VIRGEN) Blood Type Antibody Screen 10/03/19 10/03/19 10/03/19 07:07 08:06 08:06 WBC RBC Hgb Hct MCV MCH MCHC RDW Plt Count MPV Absolute Neuts (auto) Neutrophils % Lymphocytes % Monocytes % Eosinophils % Basophils % Nucleated RBC % ESR PT with INR INR PTT (Actin FS) D-Dimer 7487 H Anticoagulation Therapy Puncture Site Patient Temperature ABG pH ABG pCO2 ABG pO2 ABG HCO3 ABG O2 Sat (Measured) ABG O2 Content ABG Base Excess Gera Test VBG pH POC VBG pCO2 POC VBG pO2 VBG HCO3 VBG O2 Sat (Denise) VBG Base Excess Patient On Oxygen O2 Delivery Device Oxygen Flow Rate Vent Mode Vent Rate Mechanical Rate PEEP Pressure Support Vent Sodium Potassium Chloride Carbon Dioxide Anion Gap BUN Creatinine Est GFR (CKD-EPI)AfAm Est GFR (CKD-EPI)NonAf POC Glucometer 110 Random Glucose Hemoglobin A1c % Lactic Acid Calcium Phosphorus Magnesium Ferritin Total Bilirubin AST ALT Alkaline Phosphatase LD Total Creatine Kinase Troponin I 0.34 H C-Reactive Protein Total Protein Albumin TSH Urine Color Urine Appearance Urine pH Ur Specific Sparks Urine Protein Urine Glucose (UA) Urine Ketones Urine Blood Urine Nitrite Urine Bilirubin Urine Urobilinogen Ur Leukocyte Esterase Ur Random Creatinine U Random Total Protein Protein/Creatinin Ratio COVID-19 (VIRGEN) Blood Type Antibody Screen 10/03/19 10/03/19 10/03/19 11:28 11:34 17:09 WBC RBC Hgb Hct MCV MCH MCHC RDW Plt Count MPV Absolute Neuts (auto) Neutrophils % Lymphocytes % Monocytes % Eosinophils % Basophils % Nucleated RBC % ESR PT with INR INR PTT (Actin FS) D-Dimer Anticoagulation Therapy Puncture Site Patient Temperature ABG pH ABG pCO2 ABG pO2 ABG HCO3 ABG O2 Sat (Measured) ABG O2 Content ABG Base Excess Gera Test VBG pH POC VBG pCO2 POC VBG pO2 VBG HCO3 VBG O2 Sat (Denise) VBG Base Excess Patient On Oxygen O2 Delivery Device Oxygen Flow Rate Vent Mode Vent Rate Mechanical Rate PEEP Pressure Support Vent Sodium Potassium Chloride Carbon Dioxide Anion Gap BUN Creatinine Est GFR (CKD-EPI)AfAm Est GFR (CKD-EPI)NonAf POC Glucometer 163 190 Random Glucose Hemoglobin A1c % Lactic Acid Calcium Phosphorus Magnesium Ferritin Total Bilirubin AST ALT Alkaline Phosphatase LD Total Creatine Kinase Troponin I C-Reactive Protein Total Protein Albumin TSH Urine Color Urine Appearance Urine pH Ur Specific Sparks Urine Protein Urine Glucose (UA) Urine Ketones Urine Blood Urine Nitrite Urine Bilirubin Urine Urobilinogen Ur Leukocyte Esterase Ur Random Creatinine 51.0 U Random Total Protein 12.9 H Protein/Creatinin Ratio 0.3 COVID-19 (VIRGEN) Blood Type Antibody Screen 10/03/19 10/03/19 10/04/19 18:05 21:51 05:55 WBC RBC Hgb Hct MCV MCH MCHC RDW Plt Count MPV Absolute Neuts (auto) Neutrophils % Lymphocytes % Monocytes % Eosinophils % Basophils % Nucleated RBC % ESR PT with INR INR PTT (Actin FS) D-Dimer Anticoagulation Therapy Puncture Site Patient Temperature ABG pH ABG pCO2 ABG pO2 ABG HCO3 ABG O2 Sat (Measured) ABG O2 Content ABG Base Excess Gera Test VBG pH POC VBG pCO2 POC VBG pO2 VBG HCO3 VBG O2 Sat (Denise) VBG Base Excess Patient On Oxygen O2 Delivery Device Oxygen Flow Rate Vent Mode Vent Rate Mechanical Rate PEEP Pressure Support Vent Sodium Potassium Chloride Carbon Dioxide Anion Gap BUN Creatinine Est GFR (CKD-EPI)AfAm Est GFR (CKD-EPI)NonAf POC Glucometer 178 118 Random Glucose Hemoglobin A1c % Lactic Acid Calcium Phosphorus Magnesium Ferritin Total Bilirubin AST ALT Alkaline Phosphatase LD Total Creatine Kinase Troponin I 0.21 H C-Reactive Protein Total Protein Albumin TSH Urine Color Urine Appearance Urine pH Ur Specific Sparks Urine Protein Urine Glucose (UA) Urine Ketones Urine Blood Urine Nitrite Urine Bilirubin Urine Urobilinogen Ur Leukocyte Esterase Ur Random Creatinine U Random Total Protein Protein/Creatinin Ratio COVID-19 (VIRGEN) Blood Type Antibody Screen 10/04/19 10/04/19 10/04/19 06:08 06:08 11:01 WBC 9.2 RBC 4.27 Hgb 12.4 Hct 38.1 MCV 89.2 MCH 28.9 MCHC 32.4 RDW 14.7 Plt Count 233 MPV 9.0 Absolute Neuts (auto) 6.0 Neutrophils % 65.5 Lymphocytes % 20.7 D Monocytes % 8.8 Eosinophils % 4.5 D Basophils % 0.5 Nucleated RBC % 0 ESR PT with INR INR PTT (Actin FS) D-Dimer Anticoagulation Therapy Puncture Site Patient Temperature ABG pH ABG pCO2 ABG pO2 ABG HCO3 ABG O2 Sat (Measured) ABG O2 Content ABG Base Excess Gera Test VBG pH POC VBG pCO2 POC VBG pO2 VBG HCO3 VBG O2 Sat (Denise) VBG Base Excess Patient On Oxygen O2 Delivery Device Oxygen Flow Rate Vent Mode Vent Rate Mechanical Rate PEEP Pressure Support Vent Sodium 146 H Potassium 4.1 Chloride 114 H Carbon Dioxide 25 Anion Gap 7 L BUN 11.6 Creatinine 1.0 Est GFR (CKD-EPI)AfAm 83.18 Est GFR (CKD-EPI)NonAf 71.77 POC Glucometer 133 Random Glucose 117 H Hemoglobin A1c % Lactic Acid Calcium 8.5 Phosphorus 3.0 Magnesium 2.1 Ferritin Total Bilirubin AST ALT Alkaline Phosphatase LD Total Creatine Kinase Troponin I C-Reactive Protein Total Protein Albumin TSH Urine Color Urine Appearance Urine pH Ur Specific Sparks Urine Protein Urine Glucose (UA) Urine Ketones Urine Blood Urine Nitrite Urine Bilirubin Urine Urobilinogen Ur Leukocyte Esterase Ur Random Creatinine U Random Total Protein Protein/Creatinin Ratio COVID-19 (VIRGEN) Blood Type Antibody Screen CT CHEST Compared to prior chest x-ray dated 10/02/2019. There is bibasal atelectasis and consolidation with air bronchogram. No pneumothorax or pleural effusion identified, bilaterally. Included lower neck appears unremarkable. The heart is within normal limits in size. Calcification of the coronary arteries are present. No enlarged mediastinal or hilar lymph nodes are identified. In the included upper abdomen, no gross organomegaly or CT evidence of an acute process is identified. Multilevel mild degenerative disc disease in the thoracic spine with anterior spondylosis and without evidence of a compression fracture or subluxation. There is a minimally displaced fracture in lateral arch of the left fourth and fifth rib that may be subacute and questionable nondisplaced fracture lateral arch of the left sixth rib. Impression: Bibasal consolidation/atelectasis and mild atelectatic changes in lingular segment of the left upper lobe suggestive of pneumonia. Likely recent/subacute fractures in lateral arch of the left fourth, fifth and probably sixth rib. Correlate clinically. No pneumothorax or pleural effusion identified, bilaterally. No enlarged mediastinal or hilar lymph nodes are identified. CTA - Elevated d-dimer. Rule out PE CT scan of the chest following intravenous contrast. A post intravenous contrast CT angiogram of the chest was performed utilizing pulmonary embolus protocol. Coronal/ sagittal reconstruction images were obtained. 57 cc of Omnipaque 350 was intravenously injected Compared to prior CT scan of the chest dated 10/02/2019 There is no gross filling defect within the main pulmonary artery and its proximal branches, bilaterally. The thoracic and visualized portion of the upper abdominal aorta is normally enhanced without evidence of aneurysmal dilatation or dissection. The heart is within normal limits in size. No gross mediastinal or hilar enlarged lymph nodes are identified. Described bibasal consolidation/atelectasis and mild atelectatic changes in lingular segment of the left upper lobe are again seen suspicious for pneumonia. No pneumothorax or gross pleural effusion are identified. Visualized osseous structures appear grossly intact. Previously described recent/subacute left rib fractures are again noted. Otherwise, the visualized osseous structures appear intact IMPRESSION: There is no gross evidence of a pulmonary embolus within the main pulmonary artery and its proximal bifurcations, bilaterally. Bibasal consolidation/atelectasis and mild atelectatic changes in lingular segment of the left upper lobe compatible with pneumonia HOSPITAL COURSE: Patient is a 79 yo male with PMHx of HTN, HLD, Hypothyroid, IDDM2 & BPH. He presented to the ED s/p syncopal episode while having diarrhea with hypotension. Patient reported a similar episode of syncope 2 months ago in [place]. In the ED, patient was found to have elevated lactic acid, D-dimer, & troponin in ED, as well as BL atelectasis on CT. He was admitted to telemetry for workup of syncope and suspected sepsis 2/2 pneumonia vs covid. After fluids the patient improved. A PE was ruled out with CTA. He was started on zoysn for concern of pneumonia. Pulmonology and cardiology were consulted. Given the patient's recent rib fracture and WBC quickly returning to normal, pneumonia is less likely, and antibiotics were stopped, sepsis was ruled out. Given the patient's history of similar syncopal events, we believe his syncope is a mixture of vasovagal exacerbated by volume depletion. Because of his drop in BP do to both volume depletion and vasovagal episode, we discontinued his lisinopril to avoid further hypotension. Also, even though a PE and COVID were ruled out, given his high D-dimer, we discharged the patient on eliquis 5 mg BID because of fear of clotting. He should follow up with his primary care provider regarding his medication changes. Date of Admission:10/02/19 Date of Discharge: 10/04/19 Minutes to complete discharge: 37 Discharge Summary Problems reviewed: Yes Reason For Visit: PRE SYNCOPE,HYPOVOLEMIA,LACTIC ACIDOSIS Current Active Problems Atelectasis of both lungs (Acute) Hypovolemia (Acute) Lactic acidosis (Acute) Lung consolidation (Acute) Near syncope (Acute) Pneumonia (Acute) Condition: Stable - Instructions Diet, Activity, Other Instructions: Visit: You came to the emergency department after experiencing a fainting event while going to the bathroom. Your blood pressure was very low. You were treated with fluids and you improved. You were worked up by cardiology for any heart conditions that could have contributed to your episode. No severe abnormalities were found. Your blood work indicated an increased D-dimer level that can be associated with increased clotting. Though you don't have a clot, we are discharging you on a medication called eliquis that you should continue taking for a month. Please follow up with your primary doctor to repeat your blood work and discuss your medications. Also, continue to use your incentive spirometer to exercise your lungs and prevent any lung illness. Your Covid-19 test in the hospital was negative. Your fainting is most likely caused by vasovagal syncope. Medications - Please stop taking your lisinopril. Your blood pressure has been decreased and that can increase the risk of having fainting events. We suggest stopping this medication until you speak with your primary care physician. - We are adding Eliquis 5 mg to take twice a day. Continue taking this for 1 month. Follow up Your echocardiogram showed possible difficulty with relaxation of the heart muscle. Follow up with your group activities aide for further evaluation. Follow up with your primary care doctor within 2 weeks for medicine reconciliation and repeat blood work and blood pressure check. Referrals: Asha Bhandari MD [Primary Care Provider] - Disposition: HOME - Home Medications Comprehensive Discharge Medication List: Ambulatory Orders Alfuzosin HCl [Alfuzosin HCl ER] 10 mg PO DAILY 10/02/19 Atorvastatin Ca [Lipitor] 20 mg PO HS 10/02/19 Canagliflozin [Invokana] 100 mg PO DAILY 10/02/19 Gabapentin [Neurontin -] 100 mg PO HS 10/02/19 Insulin Glargine,Hum.rec.anlog [Lantus Solostar] 40 unit SQ HS 10/02/19 Levothyroxine [Synthroid -] 50 mcg PO DAILY 10/02/19 Sitagliptin Phosphate [Januvia] 100 mg PO DAILY 10/02/19 metFORMIN HCL [Metformin HCl] 1,000 mg PO BID 10/02/19 Apixaban [Eliquis -] 5 mg PO BID 30 Days #60 tablet 10/04/19 This patient is new to me today: No Emergency Visit: Yes ED Registration Date: 10/02/19 Care time: The patient presented to the Emergency Department on the above date and was hospitalized for further evaluation of their emergent condition. Critical Care patient: No - Discharge Referral Referred to [facility] Med [facility] No ATTENDING PHYSICIAN STATEMENT I saw and evaluated the patient. I reviewed the resident's note and discussed the case with the resident. I agree with the resident's findings and plan as documented. SUBJECTIVE: OBJECTIVE: ASSESSMENT AND PLAN:
[2019-10-05 13:38] VITALS: BP 71/49; PULSE 87
== END 2019-10-04 13:38 | disposition home or self-care (01) | DRG 314 ==
LOC: JER 14:42 → JERBED 20:39 → J4W 10-03 12:29
PROVIDERS: ADMIT Internal Medicine; ATTEND Internal Medicine
DX: I95.9 Hypotension, unspecified (principal); J96.01 Acute respiratory failure with hypoxia; S22.42XA Multiple fractures of ribs, left side, initial encounter for closed fracture; E87.2 Acidosis; J98.11 Atelectasis; E46 Unspecified protein-calorie malnutrition; N17.9 Acute kidney failure, unspecified; Z68.26 Body mass index [BMI] 26.0-26.9, adult; E78.5 Hyperlipidemia, unspecified; E03.9 Hypothyroidism, unspecified; E11.9 Type 2 diabetes mellitus without complications; R00.0 Tachycardia, unspecified; E86.1 Hypovolemia; H26.9 Unspecified cataract; R19.7 Diarrhea, unspecified; N40.0 Benign prostatic hyperplasia without lower urinary tract symptoms; T46.4X5A Adverse effect of angiotensin-converting-enzyme inhibitors, initial encounter; E11.65 Type 2 diabetes mellitus with hyperglycemia; R55 Syncope and collapse; D72.829 Elevated white blood cell count, unspecified; E86.0 Dehydration; W18.30XA Fall on same level, unspecified, initial encounter
CPT/HCPCS: 36415; 36600; 70450-TC; 71045-TC-FY; 71250-TC; 71275-TC; 80048; 80053; 81003; 82308; 82550; 82565; 82728; 82803; 82962; 83036; 83605; 83615; 83735; 84100; 84156; 84443; 84484; 85025; 85379; 85610; 85651; 85730; 86140; 87040; 87081; 87899; 93005; 93010; 93306-TC; 94010; 99285-25; Q9967; U0003